=== PATIENT | female | born 1945 | race Caucasian/White ===

== ENCOUNTER 2017-12-29 16:03 | Emergency (ER) | payer MEDICARE, OTHER ==
[2017-12-29] MEDS ORDERED: RX INFO: IV CONTRAST WAS GIVEN 1 EACH MISC MISCELLANE PRN (16:23)
--- NOTE | 2017-12-29 16:28 | ED ---
General Adult HPI - General Chief complaint: Trauma Stated complaint: Rib injury Time Seen by Provider: 12/29/17 16:14 Source: patient, RN notes reviewed Mode of arrival: wheelchair Limitations: no limitations - History of Present Illness Initial comments: Patient is a 72-year-old female presenting to the emergency room today with a chief complaint of an injury to the right ribs. Patient does admit that she was soaking her move some truck. He states that he told her to step back because they were very heavy and he was just going to throw them up the side. States he didn't realize that she admits to tobacco trailer and went to throw the lawn. He states he was picking up the side and when he let go didn't realize that she was standing right there. On the right side of the ribs lifted her up and knocking her off the trailer. Patient does admit to pain locally to the right ribs. She states initially she had the wind knocked out of her. Denies any head injury or loss conscious. There is pain right side of her ribs worse with certain movements. She states pain currently a 4/10. Patient with the splint on her knees bilaterally. She states that they feel fine she's been ambulating with no difficulty. She denies any other complaints at this time. - Related Data Previous Rx's Medication Instructions Recorded Potassium Chloride [Klor-Con 10] 10 meq PO DAILY #5 tablet.er 12/29/17 Allergies Allergy/AdvReac Type Severity Reaction Status Date / Time No Known Allergies Allergy Verified 12/29/17 16:10 Review of Systems ROS Statement: Those systems with pertinent positive or pertinent negative responses have been documented in the HPI. ROS Other: All systems not noted in ROS Statement are negative. Past Medical History Past Medical History: Hyperlipidemia, Hypertension History of Any Multi-Drug Resistant Organisms: None Reported Past Surgical History: Appendectomy Additional Past Surgical History / Comment(s): cyst removed from ovary Past Psychological History: No Psychological Hx Reported Smoking Status: Former smoker Past Alcohol Use History: Occasional Past Drug Use History: None Reported General Exam - General Exam Comments Initial Comments: General: The patient is awake and alert, in no distress, and does not appear acutely ill. Eye: Pupils are equal, round and reactive to light, extra-ocular movements are intact. No nystagmus. There is normal conjunctiva bilaterally. No signs of icterus. Ears, nose, mouth and throat: There are moist mucous membranes and no oral lesions. Neck: The neck is supple, there is no tenderness or JVD. Cardiovascular: There is a regular rate and rhythm. No murmur, rub or gallop is appreciated. Respiratory: Lungs are clear to auscultation, respirations are non-labored, breath sounds are equal. No wheezes, stridor, rales, or rhonchi. Gastrointestinal: Patient does have small red aleks to the right upper quadrant. Locally tender throughout the distal right lower ribs some mild tenderness right side of the abdomen. There is no ecchymosis. No CVA tenderness. No rebound tenderness or guarding. Musculoskeletal: Normal ROM, no tenderness. Strength 5/5. Sensation intact. Pulses equal bilaterally 2+. Neurological: A&O x 3. CN II-XII intact, There are no obvious motor or sensory deficits. Coordination appears grossly intact. Speech is normal. Skin: Skin is warm and dry and no rashes or lesions are noted. Psychiatric: Cooperative, appropriate mood & affect, normal judgment. Limitations: no limitations Course Vital Signs 12/29/17 12/29/17 16:04 16:39 Temperature 97.5 F L Pulse Rate 60 Pulse Rate [ 82 [employer] ] Respiratory 18 18 Rate Blood Pressure 161/68 Blood Pressure 138/64 [Supine] O2 Sat by Pulse 97 Oximetry Medical Decision Making - Medical Decision Making Patient reexamined at this time shows no signs of distress. She is resting comfortably in the room. Patient's blood work has been reviewed and shows a potassium 2.9. She was given 40 mEq here in emergency room by mouth. Patient denies any known history of hypokalemia. Patient CT of the chest abdomen pelvis has been reviewed and shows no acute post reticulocyte finding. No acute osseous fracture, abdominal fluid collection, or evidence of solid organ injury in the thorax, abdomen or pelvis. A repeat CT follow-up for a 6 mm left upper lobe nodule was discussed with patient and recommended. She is advised follow-up the family doctor for repeat potassium this week. Will be given a prescription for the next 5 days to continue potassium at home. Advised to return if any symptoms increase worsen or for any other concerns. Discussed with attending physician Dr. Avalos. - Lab Data Result diagrams: 12/29/17 16:36 12/29/17 16:36 Lab Results 12/29/1718 12/29/17 Range/Units 16:36 16:36 16:36 WBC 6.1 (3.8-10.6) k/uL RBC 4.51 (3.80-5.40) m/uL Hgb 13.9 (11.4-16.0) gm/dL Hct 40.1 (34.0-46.0) % MCV 88.8 (80.0-100.0) fL MCH 30.8 (25.0-35.0) pg MCHC 34.6 (31.0-37.0) g/dL RDW 12.5 (11.5-15.5) % Plt Count 233 (150-450) k/uL Neutrophils % 45 % Lymphocytes % 40 % Monocytes % 8 % Eosinophils % 3 % Basophils % 1 % Neutrophils # 2.8 (1.3-7.7) k/uL Lymphocytes # 2.5 (1.0-4.8) k/uL Monocytes # 0.5 (0-1.0) k/uL Eosinophils # 0.2 (0-0.7) k/uL Basophils # 0.0 (0-0.2) k/uL PT 9.9 (9.0-12.0) sec INR 1.0 (<1.2) APTT 24.0 (22.0-30.0) sec Sodium 146 H (137-145) mmol/L Potassium 2.9 L* (3.5-5.1) mmol/L Chloride 101 (98-107) mmol/L Carbon Dioxide 27 (22-30) mmol/L Anion Gap 18 mmol/L BUN 17 (7-17) mg/dL Creatinine 0.70 (0.52-1.04) mg/dL Est GFR (CKD-EPI)AfAm >90 (>60 ml/min/1.73 sqM) Est GFR (CKD-EPI)NonAf 88 (>60 ml/min/1.73 sqM) Glucose 97 (74-99) mg/dL Calcium 10.2 (8.4-10.2) mg/dL Total Bilirubin 0.8 (0.2-1.3) mg/dL AST 38 H (14-36) U/L ALT 32 (9-52) U/L Alkaline Phosphatase 84 (38-126) U/L Total Protein 7.1 (6.3-8.2) g/dL Albumin 4.5 (3.5-5.0) g/dL Urine Color Urine Appearance (Clear) Urine pH (5.0-8.0) Ur Specific [place] (1.001-1.035) Urine Protein (Negative) Urine Glucose (UA) (Negative) Urine Ketones (Negative) Urine Blood (Negative) Urine Nitrite (Negative) Urine Bilirubin (Negative) Urine Urobilinogen (<2.0) mg/dL Ur Leukocyte Esterase (Negative) Urine WBC (0-5) /hpf Ur Squamous Epith Cells (0-4) /hpf Urine Mucus (None) /hpf 12/29/17 Range/Units 16:36 WBC (3.8-10.6) k/uL RBC (3.80-5.40) m/uL Hgb (11.4-16.0) gm/dL Hct (34.0-46.0) % MCV (80.0-100.0) fL MCH (25.0-35.0) pg MCHC (31.0-37.0) g/dL RDW (11.5-15.5) % Plt Count (150-450) k/uL Neutrophils % % Lymphocytes % % Monocytes % % Eosinophils % % Basophils % % Neutrophils # (1.3-7.7) k/uL Lymphocytes # (1.0-4.8) k/uL Monocytes # (0-1.0) k/uL Eosinophils # (0-0.7) k/uL Basophils # (0-0.2) k/uL PT (9.0-12.0) sec INR (<1.2) APTT (22.0-30.0) sec Sodium (137-145) mmol/L Potassium (3.5-5.1) mmol/L Chloride (98-107) mmol/L Carbon Dioxide (22-30) mmol/L Anion Gap mmol/L BUN (7-17) mg/dL Creatinine (0.52-1.04) mg/dL Est GFR (CKD-EPI)AfAm (>60 ml/min/1.73 sqM) Est GFR (CKD-EPI)NonAf (>60 ml/min/1.73 sqM) Glucose (74-99) mg/dL Calcium (8.4-10.2) mg/dL Total Bilirubin (0.2-1.3) mg/dL AST (14-36) U/L ALT (9-52) U/L Alkaline Phosphatase (38-126) U/L Total Protein (6.3-8.2) g/dL Albumin (3.5-5.0) g/dL Urine Color Yellow Urine Appearance Cloudy H (Clear) Urine pH 5.5 (5.0-8.0) Ur Specific [place] 1.020 (1.001-1.035) Urine Protein Negative (Negative) Urine Glucose (UA) Negative (Negative) Urine Ketones Negative (Negative) Urine Blood Negative (Negative) Urine Nitrite Negative (Negative) Urine Bilirubin Negative (Negative) Urine Urobilinogen <2.0 (<2.0) mg/dL Ur Leukocyte Esterase Trace H (Negative) Urine WBC 4 (0-5) /hpf Ur Squamous Epith Cells 7 H (0-4) /hpf Urine Mucus Rare H (None) /hpf Disposition Clinical Impression: Contusion of rib on right side, Hypokalemia, Pulmonary nodule Disposition: HOME SELF-CARE Condition: Good Instructions: Rib Contusion (ED) Additional Instructions: Please use medication as prescribed. Please follow-up the family doctor for repeat potassium check this week. Please discuss about pulmonary nodule and repeat imaging as discussed. Please return to emergency room if any symptoms increase worsen or for any other concerns. Prescriptions: Potassium Chloride [Klor-Con 10] 10 meq PO DAILY #5 tablet.er Is patient prescribed a controlled substance at d/c from ED?: No Referrals: Ruben Celis DO [Primary Care Provider] - 1-2 days Time of Disposition: 18:40
[2017-12-29 17:01] LABS: Appearance,Urine Cloudy (Clear); Basophils % (A) 1 %; Bilirubin,Urine Negative (Negative); Blood,Urine Negative (Negative); Color,Urine Yellow; Eosinophils # (A) 0.2 k/uL (0-0.7); Eosinophils % (A) 3 %; Glucose,Urine (UA) Negative (Negative); HCT 40.1 % (34.0-46.0); HGB 13.9 gm/dL (11.4-16.0); Ketones,Urine Negative (Negative); Leukocyte Esterase,Urine Trace (Negative); Lymphocytes # (A) 2.5 k/uL (1.0-4.8); Lymphocytes % (A) 40 %; MCH 30.8 pg (25.0-35.0); MCHC 34.6 g/dL (31.0-37.0); MCV 88.8 fL (80.0-100.0); Mean Platelet Volume 7.1; Monocytes # (A) 0.5 k/uL (0-1.0); Monocytes % (A) 8 %; Mucus,Urine Rare /hpf; Neutrophils # (A) 2.8 k/uL (1.3-7.7); Neutrophils % (A) 45 %; Nitrite,Urine Negative (Negative); PH, Urine 5.5 (5.0-8.0); Platelet Count 233 k/uL (150-450); Protein,Urine Negative (Negative); RBC 4.51 m/uL (3.80-5.40); RDW 12.5 % (11.5-15.5); Squamous Epithelial Cell,Urine 7 /hpf (0-4); Urobilinogen,Urine <2.0 mg/dL (<2.0); WBC 6.1 k/uL (3.8-10.6); WBC,Urine 4 /hpf (0-5)
[2017-12-29 17:03] LABS: ALT 32 U/L (9-52); AST 38 U/L (14-36); Albumin 4.5 g/dL (3.5-5.0); Alkaline Phosphatase 84 U/L (38-126); Anion Gap 18 mmol/L; Blood Urea Nitrogen 17 mg/dL (7-17); Calcium 10.2 mg/dL (8.4-10.2); Carbon Dioxide 27 mmol/L (22-30); Chloride 101 mmol/L (98-107); Glucose 97 mg/dL (74-99); Sodium 146 mmol/L (137-145); Total Bilirubin 0.8 mg/dL (0.2-1.3); Total Protein 7.1 g/dL (6.3-8.2)
[2017-12-29 17:05] LABS: Prothrombin Time 9.9 sec (9.0-12.0)
[2017-12-29 17:07] LABS: Potassium 2.9 mmol/L (3.5-5.1)
[2017-12-29] MEDS ORDERED: POTASSIUM CHLORIDE ER 20 MEQ TAB.ER PO STA (17:09)
--- NOTE | 2017-12-29 18:04 | CT ---
EXAMINATION TYPE: CT ChestAbdPelvis w con DATE OF EXAM: 12/29/2017 COMPARISON: NONE HISTORY: RUQ pain after injury CT DLP: 418.2 mGycm. Automated Exposure Control for Dose Reduction was Utilized. CONTRAST: CT scan of the thorax, abdomen and pelvis is performed with IV Contrast, patient injected with 100 mL of Isovue 300. FINDINGS: LUNGS: There is background chronic emphysematous change felt fairly moderate in appearance. There is mild biapical pleural/parenchymal scarring. There is 6 mm subpleural nodule left upper lobe axial noel ge 16. No pleural effusion or pneumothorax is present bilaterally. No suspicious consolidation is see n. MEDIASTINUM: There are no greater than 1 cm hilar or mediastinal lymph nodes. No cardiomegaly or p ericardial effusion is seen. Coronary artery calcification is present which is noted marker for onel nary artery disease. There is 4 mm anterior hyperdense right thyroid nodule axial image 1. OTHER: No additional significant abnormality is seen. LIVER/GB: Liver is upper limits of normal in size. PANCREAS: No significant abnormality is seen. SPLEEN: No significant abnormality is seen. ADRENALS: There is nonspecific 8 mm nodular thickening left adrenal gland axial image 58. KIDNEYS: Symmetric cortical medullary uptake and excretion is seen without hydronephrosis identified bilaterally. BOWEL: No suspicious dilatation. GENITAL ORGANS:. Uterus is surgically absent or markedly atrophic in appearance. LYMPH NODES: No greater than 1cm abdominal or pelvic lymph nodes are appreciated. OSSEOUS STRUCTURES: There is moderate disc space narrowing and spurring L4-L5 level. There is facet a rthropathy lower lumbar levels. Osseous structures are demineralized. OTHER: There is moderate to severe plaque in abdominal aorta extending into pelvic branch vessels. IMPRESSION: No acute posttraumatic finding seen in particular there is no acute osseous fracture, abn ormal fluid collection, or evidence of solid organ injury in the thorax, abdomen, or pelvis. Advise CT follow up for monitoring for 6 mm left upper lobe nodule as per Fleischner Society recommendations .
[2017-12-29 19:01] VITALS: BP 145/72; PULSE 53; RESP 16; TEMP 98
== END 2017-12-29 19:00 | disposition home or self-care (01) ==
LOC: EC 16:03
DX: S20.211A Contusion of right front wall of thorax, initial encounter (principal); E87.6 Hypokalemia; R91.1 Solitary pulmonary nodule; R10.819 Abdominal tenderness, unspecified site; Z87.891 Personal history of nicotine dependence; Z90.49 Acquired absence of other specified parts of digestive tract; W17.89XA Other fall from one level to another, initial encounter
CPT/HCPCS: 36415; 80053; 85025; 85610; 85730; 81001; 71260; 74177; 99284; Q9967

== ENCOUNTER 2018-03-05 10:23 | Day surgery (SDC) | payer MEDICARE, OTHER ==
[2018-02-28 11:39] VITALS: BMI 20.5
[~2018-03-05 10:23] MED LIST: LACTATED RINGERS 1,000 ML IV SCH
[2018-03-05] MEDS ORDERED: LIDOCAINE 1% 20 ML VIAL (10MG/ML) FOR IV START INTRADERMA ONE (11:18)
[2018-03-05 11:19] VITALS: RESP 16; TEMP 98.4
[2018-03-05] MEDS ORDERED: PROPOFOL 10 MG/ML 20 ML VIAL IV ONE (12:03)
[2018-03-05] MEDS ORDERED: LIDOCAINE 1% INJ 10MG/ML (20 ML MDV) ONE (12:03)
--- NOTE | 2018-03-05 12:38 | P.PCN ---
Date of Procedure: 03/05/18 Procedure(s) Performed: Procedure: Colonoscopy and polypectomy. Preoperative diagnosis: Screening for neoplasia. Postoperative diagnosis: Hepatic flexure polyp snared but no large polyps or cancer. Preparation: HalfLytely prep. Sedation: Was provided by anesthesia. Brief clinical history: The patient is a 72-year-old female who is scheduled for this evaluation for screening for neoplasia. The patient has no abdominal complaints, overt bleeding or anemia. She did have positive blood in her stools on a prior exam. No upper GI complaints or family history of colon cancer. This would be her first colonoscopy. Procedure: With the patient on her left lateral decubitus position and after informed consent and adequate sedation, the perianal area was inspected and it did not show any fissures or fistulas. There were no masses felt on digital rectal examination. The Olympus CFQ 160L video colonoscope was then inserted in the rectum in the usual fashion and advanced to the cecum. There was a 1- 1.5 cm polyp around the hepatic flexure which was snared and retrieved by suction but there were no large polyps or cancer. The mucosa appeared healthy. There was no obvious diverticular disease or other pathology. I retroflexed the endoscope in the rectum before the endoscope was withdrawn. Low-grade internal hemorrhoids were noted but there was no bleeding. The patient tolerated the procedure well. Plan: The patient was reassured. Discussed dietary measures and local care for hemorrhoids. In the absence of upper GI complaints or anemia, I did not recommend upper GI workup at this time for the workup of the blood in her stools and this can be kept as a contingency hercourse. She will follow-up with you as planned and I recommended repeat colonoscopy in 5 years.
[2018-03-05] MEDS ORDERED: ONDANSETRON 4 MG/2 ML VIAL IVP ONE (12:43)
[2018-03-05 12:52] VITALS: BP 119/59; PULSE 60
== END 2018-03-05 13:26 | disposition home or self-care (01) ==
LOC: ORWHC2ENDO 10:23
DX: D12.3 Benign neoplasm of transverse colon (principal); K64.8 Other hemorrhoids; R19.5 Other fecal abnormalities; I10 Essential (primary) hypertension; E78.5 Hyperlipidemia, unspecified; Z87.891 Personal history of nicotine dependence; Z79.899 Other long term (current) drug therapy
CPT/HCPCS: 88305; 45385; J2405; J2001; J2704

== ENCOUNTER → 2018-03-26 | Outpatient (CLI) | payer MEDICARE, OTHER ==
--- NOTE | 2018-03-27 08:00 | XR ---
EXAMINATION TYPE: XR foot complete RT DATE OF EXAM: 03/26/2018 CLINICAL HISTORY: pain TECHNIQUE: Frontal, lateral and oblique images of the right foot are obtained. COMPARISON: None. FINDINGS: There is no acute fracture/dislocation evident. The joint spaces appear within normal murrell its. The overlying soft tissue appears unremarkable. IMPRESSION: There is no acute fracture or dislocation. ICD 10 NO FRACTURE, INITIAL EVALUATION
== END | disposition home or self-care (01) ==
LOC: RADXRYALE 12:00
PROVIDERS: ATTEND Family Medicine
DX: M79.671 Pain in right foot (principal)

== ENCOUNTER → 2018-06-06 | Outpatient (CLI) | payer MEDICARE, OTHER ==
[2018-06-06 17:42] LABS: Blood Urea Nitrogen 27 mg/dL (7-17)
--- NOTE | 2018-06-07 07:40 | CT ---
EXAMINATION TYPE: CT chest w con DATE OF EXAM: 06/06/2018 COMPARISON: 12/29/2017 HISTORY: Solitary pulmonary nodule. CT DLP: 109.5 mGycm Automated exposure control for dose reduction was used. CONTRAST: CT scan of the chest is performed with IV Contrast, patient injected with 100 mL of Isovue M300. FINDINGS: LUNGS: Others stable 6 mm subpleural nodule left upper lobe laterally. No new nodules are identified. No evidence for mass or infiltrate. No pleural effusion. Moderate emphysematous changes are again no lucas. MEDIASTINUM: There are no greater than 1 cm hilar or mediastinal lymph nodes. No pericardial effusi on is seen. Thoracic aorta is of normal caliber. The heart is not enlarged. UPPER ABDOMEN: No significant abnormality appreciated. OTHER: 9.8 mm cyst within the spleen. IMPRESSION: 1. Stable subpleural pulmonary nodule. 2. Emphysematous changes.
== END | disposition home or self-care (01) ==
LOC: RADCTMAIN 17:06
PROVIDERS: ATTEND Family Medicine
DX: R91.1 Solitary pulmonary nodule (principal); J43.9 Emphysema, unspecified; Z01.812 Encounter for preprocedural laboratory examination
CPT/HCPCS: 82565; 84520; 71260; 36415; Q9967

== ENCOUNTER → 2018-12-11 | Outpatient (CLI) | payer MEDICARE, OTHER ==
--- NOTE | 2018-12-11 15:21 | US ---
EXAMINATION TYPE: US thyroid st tissue head/neck DATE OF EXAM: 12/11/2018 COMPARISON: NONE CLINICAL HISTORY: R94.6 Abnormal Thyroid Function. GLAND SIZE: Right Lobe: 4.2 x 1.4 x 1.6 cm Overall Parenchyma: heterogenous Left Lobe: 3.8 x 1.3 x 1.4 cm Overall Parenchyma: heterogeneous Isthmus Thickness: 0.2 cm NODULES RIGHT: # of nodules measured on right: 1 1. 0.3 X 0.2 x 0.2 cm cystic nodule at the lateral mid pole with well-defined margins. This nodule is tall as wide and shows no intranodular vascularity. Prior size: No previous LEFT: # of nodules measured on left: 2 1. 0.9 X 0.8 x 0.7 cm mixed nodule at the pole with well-defined margins. This nodule is wider jono n tall and shows no intranodular vascularity. Prior size: No previous 2. 0.6 X 0.6 x 0.4 cm isoechoic nodule at the upper pole with well-defined margins. This nodule is wider than tall and shows no intranodular vascularity. Prior size: No previous ISTHMUS: # of nodules measured in the isthmus: 0 Bilateral neck scanned, no evidence of lymphadenopathy. IMPRESSION: Multinodular subcentimeter thyroid nodules with findings suggestive of thyroiditis.
== END | disposition home or self-care (01) ==
LOC: RADUSWWP 14:22
PROVIDERS: ATTEND Family Medicine
DX: E04.2 Nontoxic multinodular goiter (principal)
CPT/HCPCS: 76536

== ENCOUNTER → 2019-01-08 | Outpatient (CLI) | payer MEDICARE, OTHER ==
[2019-01-08 18:03] LABS: T4, Free (Free Thyroxine) 1.2 ng/dL (0.80-1.80)
== END | disposition home or self-care (01) ==
LOC: LABWHC1 10:13
PROVIDERS: ATTEND Internal Medicine Endocrinology, Diabetes & Metabolism
DX: E05.90 Thyrotoxicosis, unspecified without thyrotoxic crisis or storm (principal)
CPT/HCPCS: 36415; 84439; 84443; 84445; 84480

== ENCOUNTER → 2019-02-05 | Outpatient (CLI) | payer MEDICARE, OTHER ==
--- NOTE | 2019-02-06 13:44 | NM ---
EXAMINATION TYPE: NM thyroid image w uptake DATE OF EXAM: 02/06/2019 COMPARISON: NONE HISTORY: Nontoxic multinodular goiter TECHNIQUE: Thyroid iodine uptake is calculated and images performed after the oral administration of 313 uCi 1-123 Capsule. FINDINGS: There is normal distribution of activity throughout the gland. No focal hot nodules or phot openic defects are evident. There is increased uptake in relation to the salivary glands. Uptake at 4 hours is 5.4% which is low. Uptake at 24 hours is 16.8% which is within the minimal alberta l range. IMPRESSION: 1. There appears be some increase uptake within the thyroid scan images. 2. Thyroid Uptake however appears to be low.
== END | disposition home or self-care (01) ==
LOC: RADNMMAIN 08:39
PROVIDERS: ATTEND Internal Medicine Endocrinology, Diabetes & Metabolism
DX: E04.2 Nontoxic multinodular goiter (principal)
CPT/HCPCS: 78014; A9516

== ENCOUNTER → 2019-06-23 | Outpatient (CLI) | payer MEDICARE, OTHER ==
--- NOTE | 2019-06-23 10:32 | BD ---
EXAMINATION TYPE: Axial Bone Density DATE OF EXAM: 06/23/2019 COMPARISON: NONE CLINICAL HISTORY: disorder of bone Height: 5'2 Weight: 102 FRAX RISK QUESTIONS: Secondary Osteoporosis: RISK FACTORS HISTORY OF: Postmenopausal woman: y MEDICATIONS: Additional Medications: high blood pressure, cholesterol Additional History: EXAM MEASUREMENTS: Bone mineral densitometry was performed using the [employer] System. Bone mineral density as measured about the Lumbar spine is: ----- L1-L4(G/cm2): 0.952 T Score Values are as follows: ----- L2: -2.7 ----- L3: -2.3 ----- L4: 0.2 ----- L1-L4:-1.9 Bone mineral density about the R hip (g/cm2): 0.620 Bone mineral density about the L hip (g/cm2): 0.643 T Score values are as follows: -----R Neck: -3.0 -----L Neck: -2.8 -----R Total: -2.7 -----L Total: -2.4 IMPRESSION: Osteoporosis (T Score less than -2.5). There is increased fracture risk and therapy is usually indicated based on age. Re-Screen 1-2 years. NOTE: T-SCORE=SD OF THE YOUNG ADULT MEAN.
== END ==
LOC: RADBDWWP 09:08
PROVIDERS: ATTEND Family Medicine
DX: M81.0 Age-related osteoporosis without current pathological fracture (principal)
CPT/HCPCS: 77080

== ENCOUNTER → 2020-04-26 | Outpatient (CLI) | payer MEDICARE, OTHER ==
--- NOTE | 2020-04-26 13:21 | XR ---
EXAMINATION TYPE: XR cervical spine comp DATE OF EXAM: 04/26/2020 COMPARISON: None HISTORY: 74-year-old female M542, cervicalgia, posterior neck pain TECHNIQUE: 5 views FINDINGS: Normal odontoid view. No predental space linear prevertebral soft tissue swelling. Facet arthropathy and uncovertebral joint arthropathy especially mid cervical spine. There is preserved alignment of th e cervical spine. No significant bony neuroforaminal narrowing on either side. IMPRESSION: Moderate facet and uncovertebral joint arthropathy mid cervical spine. No prevertebral soft tissue sw elling or malalignment.
== END | disposition home or self-care (01) ==
LOC: RADXRYALE 11:15
PROVIDERS: ATTEND Family Medicine
DX: M47.812 Spondylosis without myelopathy or radiculopathy, cervical region (principal)
CPT/HCPCS: 72050

== ENCOUNTER 2021-12-01 22:06 | Observation (INO) | payer MEDICARE, OTHER ==
--- NOTE | 2021-12-01 23:40 | XR ---
EXAMINATION TYPE: XR chest 2V DATE OF EXAM: 12/01/2021 COMPARISON: NONE HISTORY: Short of breath TECHNIQUE: 2 view FINDINGS: There is pulmonary hyperinflation with flattening of the diaphragm. Heart size is normal. T here are no hilar masses. Costophrenic angles are clear. Thoracic spine is intact. IMPRESSION: COPD. No active cardiopulmonary disease.
[2021-12-02 02:15] LABS: Basophils # (A) 0.1 k/uL (0-0.2); Basophils % (A) 1 %; Eosinophils # (A) 0.3 k/uL (0-0.7); Eosinophils % (A) 4 %; HCT 47.2 % (34.0-46.0); HGB 15.5 gm/dL (11.4-16.0); Lymphocytes # (A) 2.5 k/uL (1.0-4.8); Lymphocytes % (A) 33 %; MCH 30.4 pg (25.0-35.0); MCHC 32.8 g/dL (31.0-37.0); MCV 92.7 fL (80.0-100.0); Mean Platelet Volume 7.6; Monocytes # (A) 0.5 k/uL (0-1.0); Monocytes % (A) 7 %; Neutrophils # (A) 3.8 k/uL (1.3-7.7); Neutrophils % (A) 51 %; Platelet Count 259 k/uL (150-450); RBC 5.09 m/uL (3.80-5.40); RDW 12.5 % (11.5-15.5); WBC 7.4 k/uL (3.8-10.6)
[2021-12-02 02:25] LABS: ALT 17 U/L (4-34); AST 23 U/L (14-36); African American GFR (CKD) >90 (>60 ml/min/1.73 sqM); Albumin 4.7 g/dL (3.5-5.0); Alkaline Phosphatase 81 U/L (38-126); Anion Gap 10 mmol/L; Blood Urea Nitrogen 20 mg/dL (7-17); Calcium 10.1 mg/dL (8.4-10.2); Carbon Dioxide 30 mmol/L (22-30); Chloride 98 mmol/L (98-107); Glucose 112 mg/dL (74-99); Non-African American GFR(CKD) 86 (>60 ml/min/1.73 sqM); Potassium 3.5 mmol/L (3.5-5.1); Sodium 138 mmol/L (137-145); Total Protein 7.9 g/dL (6.3-8.2)
[2021-12-02 02:26] LABS: INR 0.9 (<1.2); Partial Thromboplastin Time 25.4 sec (22.0-30.0)
--- NOTE | 2021-12-02 03:48 | ED ---
SOB HPI - General Chief Complaint: Shortness of Breath Stated Complaint: PREETI Time Seen by Provider: 12/02/21 01:20 Source: patient, RN notes reviewed Mode of arrival: wheelchair Limitations: no limitations - History of Present Illness Initial Comments: This is a pleasant 76-year-old female who has had 3 episodes of racing heart beat with a sensation of shortness of breath over the past few days. She states this lasts several minutes up to an hour and then goes away completely. Since around Jihad the current time. She has had no chest pain. Denies any fever or chills. No cough. No headache, no fever or chills, no changes in vision or hearing, no sore throat or difficulty with speech, no neck pain, no chest pain or shortness of breath, no abdominal pain, no nausea or vomiting, no changes in urination or bowel movements, no numbness or tingling, no extremity pain, no skin rashes or lesions. Patient is a previous cigarette smoker quitting in 2017. No history of pulmonary embolism or DVT. No history of COVID-19. Patient immunized against COVID-19. Patient does note that she has been under a great deal of stress due to her being diagnosed with cancer. - Related Data Home Medications Medication Instructions Recorded Confirmed Ascorbic Acid [Vitamin C] 1,000 mg PO DAILY 02/28/18 03/05/18 Atenolol/Chlorthalidone [Tenoretic 1 tab PO DAILY 02/28/18 03/05/18 50 Tablet] Cholecalciferol (Vitamin D3) 2,000 unit PO DAILY 02/28/18 03/05/18 [Vitamin D3] Fish Oil/Dha/Epa [Fish Oil 1,200 1 each PO DAILY 02/28/18 03/05/18 mg Fish Oil] Multivitamin [Multivitamins Adult 2 each PO DAILY 02/28/18 03/05/18 Gummies] Pravastatin Sodium [Pravachol] 20 mg PO DAILY 02/28/18 03/05/18 Allergies Allergy/AdvReac Type Severity Reaction Status Date / Time No Known Allergies Allergy Verified 12/01/21 22:24 Review of Systems ROS Statement: Those systems with pertinent positive or pertinent negative responses have been documented in the HPI. ROS Other: All systems not noted in ROS Statement are negative. Past Medical History Past Medical History: Hyperlipidemia, Hypertension Additional Past Medical History / Comment(s): POS BLOOD IN STOOL SAMPLE. History of Any Multi-Drug Resistant Organisms: None Reported Past Surgical History: Appendectomy, Section, Hysterectomy Additional Past Surgical History / Comment(s): C-S X2. Cyst removed from Ovary. MEGHNA CTR X2 Past Anesthesia/Blood Transfusion Reactions: No Reported Reaction Past Psychological History: No Psychological Hx Reported Smoking Status: Never smoker Past Alcohol Use History: Occasional Past Drug Use History: None Reported - Past Family History Mother Family Medical History: No Reported History General Exam - General Exam Comments Initial Comments: Healthy-appearing 76-year-old female in no distress at the time I'm seeing her. Vital signs are reviewed. Does not appear to be ill or toxic. Limitations: no limitations General appearance: alert, in no apparent distress Head exam: Present: atraumatic, normocephalic, normal inspection Eye exam: Present: normal appearance, PERRL, EOMI. Absent: scleral icterus, conjunctival injection, periorbital swelling ENT exam: Present: normal exam, mucous membranes moist Neck exam: Present: normal inspection. Absent: tenderness, meningismus, lymphadenopathy Respiratory exam: Present: normal lung sounds bilaterally. Absent: respiratory distress, wheezes, rales, rhonchi, stridor Cardiovascular Exam: Present: regular rate, normal rhythm, normal heart sounds. Absent: systolic murmur, diastolic murmur, rubs, gallop, clicks GI/Abdominal exam: Present: soft, normal bowel sounds. Absent: distended, tend erness, guarding, rebound, rigid Extremities exam: Present: normal inspection, full ROM, normal capillary refill. Absent: tenderness, pedal edema, joint swelling, calf tenderness Back exam: Present: normal inspection Neurological exam: Present: alert, oriented X3, CN II-XII intact Psychiatric exam: Present: normal affect, normal mood Skin exam: Present: warm, dry, intact, normal color. Absent: rash Course Vital Signs 12/01/21 22:25 Temperature 98.3 F Pulse Rate 64 Respiratory 20 Rate Blood Pressure 153/73 O2 Sat by Pulse 95 Oximetry - Reevaluation(s) Reevaluation #1: 12/02/21 03:50 Medical record is reviewed Patient remained asymptomatic here in the emergency department Patient is informed of results and questions answered Patient in no distress Medical Decision Making - Medical Decision Making Palpitations Patient presents with recurrent episodes of palpitations. Patient was asymptomatic here in the ER. This does raise suspicion of possible intermittent cardiac arrhythmia. Patient's laboratory investigations and diagnostic testing here are essentially normal. We did order a 36 hour Holter monitor. Have the patient touch base with her regular physician to see if she should go back up on atenolol dosing as this was recently cut in half. Patient also had a systolic blood pressure 150s here. Patient given follow-up information for cardiology as well. She is to call the morning for an appointment. She will plan discussed in detail. All questions answered. Patient voiced understanding. Patient was told to return to the ER for any signs or symptoms worsen. Told to return immediately if any other problems arise. All questions answered. Treatment plan discussed. Patient in agreement Every effort has been made to ensure accuracy of this dictation. However, due to the limitations of electronic medical records and dictation devices, errors in charting still occur. - Lab Data Result diagrams: 12/02/21 02:00 12/02/21 02:00 Lab Results 12/02/21 12/02/21 12/02/21 Range/Units 02:00 02:00 02:00 WBC 7.4 (3.8-10.6) k/uL RBC 5.09 (3.80-5.40) m/uL Hgb 15.5 (11.4-16.0) gm/dL Hct 47.2 H (34.0-46.0) % MCV 92.7 (80.0-100.0) fL MCH 30.4 (25.0-35.0) pg MCHC 32.8 (31.0-37.0) g/dL RDW 12.5 (11.5-15.5) % Plt Count 259 (150-450) k/uL MPV 7.6 Neutrophils % 51 % Lymphocytes % 33 % Monocytes % 7 % Eosinophils % 4 % Basophils % 1 % Neutrophils # 3.8 (1.3-7.7) k/uL Lymphocytes # 2.5 (1.0-4.8) k/uL Monocytes # 0.5 (0-1.0) k/uL Eosinophils # 0.3 (0-0.7) k/uL Basophils # 0.1 (0-0.2) k/uL PT 10.0 (9.0-12.0) sec INR 0.9 (<1.2) APTT 25.4 (22.0-30.0) sec Sodium 138 (137-145) mmol/L Potassium 3.5 (3.5-5.1) mmol/L Chloride 98 (98-107) mmol/L Carbon Dioxide 30 (22-30) mmol/L Anion Gap 10 mmol/L BUN 20 H (7-17) mg/dL Creatinine 0.70 (0.52-1.04) mg/dL Est GFR (CKD-EPI)AfAm >90 (>60 ml/min/1.73 sqM) Est GFR (CKD-EPI)NonAf 86 (>60 ml/min/1.73 sqM) Glucose 112 H (74-99) mg/dL Calcium 10.1 (8.4-10.2) mg/dL Magnesium 2.0 (1.6-2.3) mg/dL Total Bilirubin 1.0 (0.2-1.3) mg/dL AST 23 (14-36) U/L ALT 17 (4-34) U/L Alkaline Phosphatase 81 (38-126) U/L Troponin I (0.000-0.034) ng/mL NT-Pro-B Natriuret Pep pg/mL Total Protein 7.9 (6.3-8.2) g/dL Albumin 4.7 (3.5-5.0) g/dL TSH 1.310 (0.465-4.680) mIU/L Coronavirus (PCR) (Not Detectd) 12/02/21 12/02/21 12/02/21 Range/Units 02:00 02:00 02:00 WBC (3.8-10.6) k/uL RBC (3.80-5.40) m/uL Hgb (11.4-16.0) gm/dL Hct (34.0-46.0) % MCV (80.0-100.0) fL MCH (25.0-35.0) pg MCHC (31.0-37.0) g/dL RDW (11.5-15.5) % Plt Count (150-450) k/uL MPV Neutrophils % % Lymphocytes % % Monocytes % % Eosinophils % % Basophils % % Neutrophils # (1.3-7.7) k/uL Lymphocytes # (1.0-4.8) k/uL Monocytes # (0-1.0) k/uL Eosinophils # (0-0.7) k/uL Basophils # (0-0.2) k/uL PT (9.0-12.0) sec INR (<1.2) APTT (22.0-30.0) sec Sodium (137-145) mmol/L Potassium (3.5-5.1) mmol/L Chloride (98-107) mmol/L Carbon Dioxide (22-30) mmol/L Anion Gap mmol/L BUN (7-17) mg/dL Creatinine (0.52-1.04) mg/dL Est GFR (CKD-EPI)AfAm (>60 ml/min/1.73 sqM) Est GFR (CKD-EPI)NonAf (>60 ml/min/1.73 sqM) Glucose (74-99) mg/dL Calcium (8.4-10.2) mg/dL Magnesium (1.6-2.3) mg/dL Total Bilirubin (0.2-1.3) mg/dL AST (14-36) U/L ALT (4-34) U/L Alkaline Phosphatase (38-126) U/L Troponin I <0.012 (0.000-0.034) ng/mL NT-Pro-B Natriuret Pep 185 pg/mL Total Protein (6.3-8.2) g/dL Albumin (3.5-5.0) g/dL TSH (0.465-4.680) mIU/L Coronavirus (PCR) Not Detected (Not Detectd) - EKG Data EKG Comments: EKG shows normal sinus rhythm with a rate of 60, normal intervals. No acute ST or T-wave changes. Mild artifact. Normal axis. Minimal poor R-wave progression. No evidence of acute changes. Read by the ED attending physician. Study done at 1:12 AM. - Radiology Data Radiology results: image reviewed (Chest x-ray shows COPD with no active cardiopulmonary disease otherwise.) Disposition Clinical Impression: Palpitations, Hypertension, poor control Disposition: HOME SELF-CARE Condition: Good Instructions (If sedation given, give patient instructions): Heart Palpitations (ED), Hypertension (ED) Additional Instructions: Call tomorrow morning at 8 AM to make an appointment with the doper. Also call your regular physician to discuss dosage of your blood pressure medication, atenolol. You need to have a Holter monitor. Return here to this facility tomorrow to have a Holter monitor placed by the cardiology clinic. Call the main hospital number at 9 AM to schedule a time. Follow-up with your regular physician as directed. Return to the ER immediately if any symptoms worsen, new symptoms arise, or any other problems develop. If any symptoms recur return to the ER at once. Is patient prescribed a controlled substance at d/c from ED?: No Referrals: Ruben Celis DO [Primary Care Provider] - 12/02/21 8:00 am Manuel Coello MD [STAFF PHYSICIAN] - 12/02/21 8:00 am
[2021-12-02] MEDS ORDERED: ASPIRIN 81 MG PO STA (04:06)
[2021-12-02] MEDS ORDERED: ACETAMINOPHEN TAB 325 MG TAB PO PRN (04:17)
[2021-12-02] MEDS ORDERED: NALOXONE 0.4 MG/ML 1 ML VIAL IV PRN (04:17)
[2021-12-02] MEDS ORDERED: ONDANSETRON 4 MG/2 ML VIAL IVP PRN (04:17)
--- NOTE | 2021-12-02 05:07 | P.HPIM ---
History of Present Illness H&P Date: 12/02/21 Chief Complaint: chest tightness 76 year old female with hypertension she comes in today due to exertional dyspnea when climbing steps or doing something physical , she becomes short of breath quickly , sts associated with palpitations, no syncope, no cardiac history . this has only been going on for 1-2 weeks she admits to going through a lot of stress as her diagnosed with stage IV lung cancer. recently she started feeling better in the ED, and as she was leaving , she had another episode of palpitations and chest tightness. for which she admitted under observation for cardiac eval blood work unremarkable , EKG no acute ST changes Review of Systems Pertinent positives as noted in HPI. All other systems were reviewed and are negative Past Medical History Past Medical History: Hyperlipidemia, Hypertension Additional Past Medical History / Comment(s): POS BLOOD IN STOOL SAMPLE. History of Any Multi-Drug Resistant Organisms: None Reported Past Surgical History: Appendectomy, Section, Hysterectomy Additional Past Surgical History / Comment(s): C-S X2. Cyst removed from Ovary. MEGHNA CTR X2 Past Anesthesia/Blood Transfusion Reactions: No Reported Reaction Past Psychological History: No Psychological Hx Reported Smoking Status: Never smoker Past Alcohol Use History: Occasional Past Drug Use History: None Reported - Past Family History Mother Family Medical History: No Reported History Medications and Allergies Home Medications Medication Instructions Recorded Confirmed Type Ascorbic Acid [Vitamin C] 1,000 mg PO DAILY 02/28/18 03/05/18 History Atenolol/Chlorthalidone [Tenoretic 1 tab PO DAILY 02/28/18 03/05/18 History 50 Tablet] Cholecalciferol (Vitamin D3) 2,000 unit PO DAILY 02/28/18 03/05/18 History [Vitamin D3] Fish Oil/Dha/Epa [Fish Oil 1,200 1 each PO DAILY 02/28/18 03/05/18 History mg Fish Oil] Multivitamin [Multivitamins Adult 2 each PO DAILY 02/28/18 03/05/18 History Gummies] Pravastatin Sodium [Pravachol] 20 mg PO DAILY 02/28/18 03/05/18 History Allergies Allergy/AdvReac Type Severity Reaction Status Date / Time No Known Allergies Allergy Verified 12/01/21 22:24 Physical Exam Vitals: Vital Signs Temp Pulse Resp BP Pulse Ox 12/02/21 04:28 67 18 157/88 95 12/02/21 03:00 67 18 150/84 96 12/02/21 02:00 18 12/01/21 22:25 98.3 F 64 20 153/73 95 Intake and Output 12/01/21 12/01/21 12/02/21 14:59 22:59 06:59 Other: Weight 46.266 kg Constitutional: No acute distress, conversant, pleasant Eyes: Anicteric sclerae, moist conjunctiva, Pupils equal round reactive to light ENMT: NC/AT Oropharynx clear, no erythema, or exudates Neck: Supple, FROM, no masses, or JVD No carotid bruits No thyromegaly Lungs: Clear to auscultation Clear to percussion Normal respiratory effort, no accessory muscle use Cardiovascular: Heart regular in rate and rhythm, No murmurs, gallops, or rubs No peripheral edema Abdominal: Soft Nontender, no guarding, rebound or rigidity Abdomen moving with respiration Normoactive bowel sounds No hepatomegaly, No splenomegaly No palpable mass No abdominal wall hernia noted Skin: Normal temperature, tone, texture, turgor No induration No subcutaneous nodules No rash, lesions No ulcers Extremities: No digital cyanosis No clubbing Pedal pulses intact and symmetrical Radial pulses intact and symmetrical No calf tenderness Psychiatric: Alert and oriented to person, place and time Appropriate affect fair judgement Neuro Muscles Strength 5/5 in all 4 extremities Sensation to light touch grossly present throughout Cranial nerves II-XII grossly intact No focal sensory deficits Lymphatics: no palpable cervical or supraclavicular , or inguinal lymph nodes Results CBC & Chem 7: 12/02/21 02:00 12/02/21 02:00 Labs: Abnormal Lab Results - Last 24 Hours (Table) 12/02/21 12/02/21 Range/Units 02:00 02:00 Hct 47.2 H (34.0-46.0) % BUN 20 H (7-17) mg/dL Glucose 112 H (74-99) mg/dL Assessment and Plan Assessment: Exertional dyspnea 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
[2021-12-02] MEDS ORDERED: atenoloL 50 MG TAB PO SCH (09:00)
[2021-12-02] MEDS ORDERED: PRAVASTATIN SODIUM 20 MG TAB PO SCH (09:00)
[2021-12-02] MEDS ORDERED: CHLORTHALIDONE 25 MG TAB PO SCH (09:00)
[2021-12-02 09:27] LABS: Chol/HDL Ratio 3.17 Ratio
[2021-12-02 13:06] VITALS: RESP 18
--- NOTE | 2021-12-02 14:35 | CONS ---
CONSULTATION INDICATION: Palpitations and shortness of breath. CHIEF COMPLAINT: Palpitations and shortness of breath. Sahra is a 76-year-old lady with history of dyslipidemia and hypertension who presented to hospital with intermittent episodes of shortness of breath. She states that the episodes last for about half an hour and then resolve on their own. She is under a lot of stress, as her has been diagnosed with cancer. At the time of my evaluation she appears comfortable at rest and is hemodynamically stable. I have seen her in the emergency room. Her EKG looks normal. Troponins are negative. Coronavirus is normal. Her LDL cholesterol is 117. Her D-dimer is normal and the hemoglobin is normal. Shortness of breath may be related to possible underlying COPD. She used to be heavy smoker but quit many many years ago. On an echocardiogram I performed which I reviewed at bedside, she has normal wall motion, LV function and no evidence of valvular heart disease. PAST MEDICAL HISTORY: Significant for hypertension, dyslipidemia. CURRENT MEDICATIONS: Current medications include Tenoretic, pravastatin. ALLERGIES: NO KNOWN DRUG ALLERGIES. FAMILY HISTORY: Negative for premature coronary artery disease. SOCIAL HISTORY: Negative for current smoking, ETOH abuse or drug abuse. REVIEW OF SYSTEMS: HEENT is unremarkable. CARDIAC: As described above. RESPIRATORY: As described above. GI: Negative. GENITOURINARY: Negative. ALLERGY/IMMUNOLOGY: Negative. SKIN: Negative. MUSCULOSKELETAL: Negative. ENDOCRINE: Negative. DERMATOLOGY: Negative. CONSTITUTIONAL: Negative. ONCOLOGICAL: Negative. COMPENSATION BUSINESS PARTNER: Negative. Rest of the system review is not relevant. PHYSICAL EXAMINATION: Afebrile. Heart rate is 57 beats per minute. Blood pressure is 130/72, respiratory rate is 18, O2 saturation is 94% on room air. There is no jugular venous distention. Carotid upstroke is normal. There is no bruit. Chest exam reveals good air entry bilaterally. Heart exam reveals first and second heart sounds. No gallop. No murmur. Abdomen is soft, non-tender. Examination of extremities did not reveal any edema. Peripheral pulses are felt. LABS: Three sets of troponins are negative. Hemoglobin is normal. D-dimer is normal. ASSESSMENT: 1. Shortness of breath. Rule out cardiac causes. 2. Hypertension. 3. Dyslipidemia. PLAN: Patient is not in congestive heart failure, did not have pulmonary embolism, and has normal LV function and no evidence of valvular heart disease. The exact etiology for her shortness of breath is unclear. No further inpatient cardiac workup at this time. However, I will obtain an outpatient stress test on her. My office will call and give her an appointment on Sunday. Thank you for giving me the privilege of participating in the care of this pleasant lady. MMHORACIOL / IJN: [id number] /
[2021-12-02 15:30] VITALS: BP 137/80; TEMP 97.4
[2021-12-02 15:33] VITALS: PULSE 55
--- NOTE | 2021-12-02 17:08 | P.DS ---
Providers Date of admission: 12/02/21 09:12 Expected date of discharge: 12/02/21 Attending physician: Joanne Dickson MD Consults: 12/02/21 04:17 Consult Physician Urgent Consulting Provider: Manuel Coello Consult Reason/Comments: Shortness of breath, chest pressure, palpitations Do you want consulting provider notified?: Yes, Notify in am Primary care physician: Ruben [facility] Course: Exertional dyspnea Palpitations COPD without exacerbation 76 year old female with hypertension presented due to exertional dyspnea when climbing steps or doing something physical. She started feeling better in the ED, and as she was leaving , she had another episode of palpitations and chest tightness. for which she admitted under observation for cardiac eval. Blood work unremarkable , EKG no acute ST changes. CXR showed hyperinflation and flattening of diaphragms c/w COPD. Pt was seen in consultation with cardiology, who determined patient was not having episode of ACS given negative troponins, non-ischemic EKG, Echo with good EF and no WMA, and resolution of symptoms. Pt was discharged with albuterol inhaler prescription for dyspnea, and I recommended that she f/u with PCP to schedule outpatient PFTs. I called Dr. López's office regarding this last recommendation. Gen: awake, alert HEENT: normocephalic, atraumatic, good hearing acuity, moist mucous membranes Resp: Impaired air exchange, breathing comfortably with no accessory muscle use CVS: good distal perfusion x 4, GI: soft, NTTP, ND : no SPT, no CVAT, falcon catheter not present MSK: no pitting edema, no clubbing Neuro: non-focal, moving all extremities Psych: cooperative, euthymic mood Patient Condition at Discharge: Good Plan - Discharge Summary Discharge Rx Participant: No New Discharge Prescriptions: New Albuterol Inhaler [Ventolin Hfa Inhaler] 1 puff INHALATION RT-QID PRN #8 gm PRN Reason: Shortness Of Breath Continue Multivitamin [Multivitamins Adult Gummies] 2 tab PO DAILY Pravastatin Sodium [Pravachol] 20 mg PO DAILY Atenolol/Chlorthalidone [Tenoretic 50 Tablet] 0.5 tab PO DAILY Cholecalciferol (Vitamin D3) [Vitamin D3 (3000 Iu)] 75 mcg PO DAILY Ibandronate Sodium 150 mg PO QMONTHLY Ferrous Sulfate [Iron (65 MG Elemental)] 325 mg PO DAILY Calcium Carbonate [Calcium] 600 mg PO DAILY Discharge Medication List Atenolol/Chlorthalidone [Tenoretic 50 Tablet] 0.5 tab PO DAILY 02/28/18 [History] Multivitamin [Multivitamins Adult Gummies] 2 tab PO DAILY 02/28/18 [History] Pravastatin Sodium [Pravachol] 20 mg PO DAILY 02/28/18 [History] Albuterol Inhaler [Ventolin Hfa Inhaler] 1 puff INHALATION RT-QID PRN #8 gm 12/02/21 [Rx] Calcium Carbonate [Calcium] 600 mg PO DAILY 12/02/21 [History] Cholecalciferol (Vitamin D3) [Vitamin D3 (3000 Iu)] 75 mcg PO DAILY 12/02/21 [History] Ferrous Sulfate [Iron (65 MG Elemental)] 325 mg PO DAILY 12/02/21 [History] Ibandronate Sodium 150 mg PO QMONTHLY 12/02/21 [History] Follow up Appointment(s)/Referral(s): Manuel Coello MD [STAFF PHYSICIAN] - 12/02/21 8:00 am Ruben Celis DO [Primary Care Provider] - 12/02/21 8:00 am Patient Instructions/Handouts: Heart Palpitations (ED), COPD (Chronic Obstructive Pulmonary Disease) (GEN), Hypertension (ED) Activity/Diet/Wound Care/Special Instructions: You will require PULMONARY FUNCTION TEST including spirometry and lung volume measurement, as your shortness of breath is likely related to COPD. Please discuss with your primary care physician regarding scheduling this test. I included an information packet about COPD, and prescribed an inhaler to be used as needed. Call tomorrow morning at 8 AM to make an appointment with the power engineer. Also call your regular physician to discuss dosage of your blood pressure medica tion, atenolol. You need to have a Holter monitor. Return here to this facility tomorrow to have a Holter monitor placed by the cardiology clinic. Call the main hospital number at 9 AM to schedule a time. Follow-up with your regular physician as directed. Return to the ER immediately if any symptoms worsen, new symptoms arise, or any other problems develop. If any symptoms recur return to the ER at once. Discharge Disposition: HOME SELF-CARE
--- NOTE | 2021-12-13 08:58 | ECHOF ---
Referral Reason:echo MEASUREMENTS -------- HEIGHT: 152.4 cm WEIGHT: 46.3 kg BP: RVIDd: 2.7 cm (< 3.3) IVSd: 0.9 cm (0.6 - 1.1) LVIDd: 3.2 cm (3.9 - 5.3) LVPWd: 1.2 cm (0.6 - 1.1) IVSs: 1.2 cm LVIDs: 2.5 cm LVPWs: 0.9 cm LA Diam: 3.0 cm (2.7 - 3.8) Ao Diam: 2.9 cm (2.0 - 3.7) AV Cusp: 1.4 cm (1.5 - 2.6) LA Diam: 3.1 cm (2.7 - 3.8) MV EXCURSION: 25.206 mm (> 18.000) MV EF SLOPE: 59 mm/s (70 - 150) EPSS: 0.4 cm MV E Jeff: 0.80 m/s MV DecT: 161 ms MV A Jeff: 0.62 m/s MV E/A Ratio: 1.30 RAP: 5.00 mmHg RVSP: 23.24 mmHg FINDINGS -------- Sinus rhythm. This was a technically good study. LV size, wall thickness and systolic function are normal, with an EF greater than 55%. The left kenzie tricular size is normal. The right ventricle is normal in size. The left atrial size is normal. The right atrial size is normal. There is mild aortic valve sclerosis. There is no evidence of aortic regurgitation. Mild mitral regurgitation is present. Mild tricuspid regurgitation present. Right ventricular systolic pressure is normal at < 35 mmHg. There is no pulmonic regurgitation present. There is no pericardial effusion. CONCLUSIONS -------- 1. LV size, wall thickness and systolic function are normal, with an EF greater than 55%. 2. The left ventricular size is normal. 3. The right ventricle is normal in size. 4. The left atrial size is normal. 5. The right atrial size is normal. 6. There is mild aortic valve sclerosis. 7. Mild mitral regurgitation is present. 8. Mild tricuspid regurgitation present. 9. There is no pericardial effusion. ORDNANCE MECHANIC: Emma Miramontes RDCS
== END 2021-12-02 18:47 | disposition home or self-care (01) ==
LOC: EC 22:06 → 6NMEDSUR 12-02 09:12
PROVIDERS: ADMIT Internal Medicine; ATTEND Internal Medicine
DX: R06.09 Other forms of dyspnea (principal); R06.02 Shortness of breath; R00.0 Tachycardia, unspecified; R00.1 Bradycardia, unspecified; R00.2 Palpitations; R07.89 Other chest pain; J44.9 Chronic obstructive pulmonary disease, unspecified; E78.5 Hyperlipidemia, unspecified; F41.9 Anxiety disorder, unspecified; I10 Essential (primary) hypertension; Z20.822 Contact with and (suspected) exposure to COVID-19; Z63.79 Other stressful life events affecting family and household; Z90.49 Acquired absence of other specified parts of digestive tract; Z87.891 Personal history of nicotine dependence; Z90.710 Acquired absence of both cervix and uterus; Z79.899 Other long term (current) drug therapy
CPT/HCPCS: 99285; 36415; 93005; 93306; 85379; 83880; 80061; 80053; 84443; 83735; 84484; 85025; 85610; 85730; 83036; 87635; 71046; G0378

== ENCOUNTER 2024-10-24 21:04 | Inpatient (IN) | payer MEDICARE, OTHER ==
[2024-10-24] MEDS: IPRATROPIUM-ALBUTEROL 3 ML NEB INHALATION STA (21:17)
[2024-10-24 21:34] LABS: Basophils % (A) 0 %; Eosinophils # (A) 0.1 k/uL (0-0.7); Eosinophils % (A) 1 %; HCT 44.4 % (34.0-46.0); HGB 14.7 gm/dL (11.4-16.0); Lymphocytes # (A) 0.7 k/uL (1.0-4.8); Lymphocytes % (A) 6 %; MCH 32.1 pg (25.0-35.0); MCHC 33.2 g/dL (31.0-37.0); MCV 96.6 fL (80.0-100.0); Mean Platelet Volume 7.3; Monocytes # (A) 0.7 k/uL (0-1.0); Monocytes % (A) 6 %; Neutrophils # (A) 10.4 k/uL (1.3-7.7); Neutrophils % (A) 87 %; Platelet Count 218 k/uL (150-450); RBC 4.59 m/uL (3.80-5.40); RDW 12.6 % (11.5-15.5)
[2024-10-24] MEDS: methylPREDNISolone SOD SUCCI 125 MG/2 ML VIAL IV STA (21:35)
[2024-10-24] MEDS: MAGNESIUM SULFATE-D5W PMX 1 GM in DEXTROSE/WATER 1 100ML.BAG IVPB STA (21:35)
[2024-10-24 21:49] LABS: Partial Thromboplastin Time 25.5 sec (22.0-30.0); Prothrombin Time 10.7 sec (10.0-12.5)
--- NOTE | 2024-10-24 21:53 | XR ---
EXAMINATION TYPE: XR chest 1V portable DATE OF EXAM: 10/24/2024 9:32 PM COMPARISON: 12/01/2021 CLINICAL INDICATION: Female, 79 years old with history of sob, TECHNIQUE: XR chest 1V portable view(s) obtained. FINDINGS: The heart size is normal. The pulmonary vasculature is normal. Hyperinflation is present. Minimal effusions are not excluded. Correlate for COPD IMPRESSION: 1. Minimal costophrenic angle pleural effusions may be present. 2. Clinical consideration for COPD [facility], , 10/24/2024 9:51 PM
[2024-10-24 21:57] LABS: ALT 20 U/L (4-34); AST 31 U/L (14-36); African American GFR (CKD) >90 (>60 ml/min/1.73 sqM); Albumin 4.6 g/dL (3.5-5.0); Alkaline Phosphatase 65 U/L (38-126); Anion Gap 11 mmol/L; Blood Urea Nitrogen 17 mg/dL (7-17); Calcium 9.6 mg/dL (8.4-10.2); Carbon Dioxide 26 mmol/L (22-30); Chloride 98 mmol/L (98-107); Glucose 148 mg/dL (74-99); Non-African American GFR(CKD) >90 (>60 ml/min/1.73 sqM); Sodium 135 mmol/L (137-145); Total Bilirubin 1.5 mg/dL (0.2-1.3); Total Protein 7.2 g/dL (6.3-8.2)
[2024-10-24 22:05] LABS: NT-Pro-B-Type Natriuretic Pept 496 pg/mL
[2024-10-24 22:11] LABS: Influenza A Detected (Not Detectd); Influenza B Not Detected (Not Detectd); RSV Not Detected (Not Detectd)
[2024-10-24] MEDS ORDERED: NALOXONE 0.4 MG/ML 1 ML VIAL IV PRN (22:46)
--- NOTE | 2024-10-24 22:46 | ED ---
SOB HPI - General Chief Complaint: Shortness of Breath Stated Complaint: PREETI Time Seen by Provider: 10/24/24 21:10 Source: EMS Mode of arrival: EMS - History of Present Illness Initial Comments: 79-year-old female with past medical history of COPD not on home oxygen who presents emergency department with increased work of breathing. States that she started having cold-like symptoms this morning. Admits to cough and congestion. Denies any sick contacts. Work of breathing became worse over the course of the day she. She did try to take a breathing treatment at home and when she did not feel any better she called EMS. They did provide her with a DuoNeb breath ing treatment. She was placed on 8 L of oxygen. Room pulse ox was not obtained because patient had significant increased work of breathing. She denies any fevers but does admit to a headache. Admits nausea without vomiting. Denies any chest pain. No history of cardiac disease. No history of DVT or PE. No calf pain or swelling. 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 States she is never been hospitalized for her breathing before. No other alleviating, precipitating modifying factors - Related Data Home Medications Medication Instructions Recorded Confirmed Atenolol/Chlorthalidone [Tenoretic 0.5 tab PO DAILY 02/28/18 12/02/21 50 Tablet] Multivitamin [Multivitamins Adult 2 tab PO DAILY 02/28/18 12/02/21 Gummies] Pravastatin Sodium [Pravachol] 20 mg PO DAILY 02/28/18 12/02/21 Calcium Carbonate [Calcium] 600 mg PO DAILY 12/02/21 12/02/21 Cholecalciferol (Vitamin D3) 75 mcg PO DAILY 12/02/21 12/02/21 [Vitamin D3 (3000 Iu)] Ferrous Sulfate [Iron (65 MG 325 mg PO DAILY 12/02/21 12/02/21 Elemental)] Ibandronate Sodium [Boniva] 150 mg PO QMONTHLY 12/02/21 12/02/21 Previous Rx's Medication Instructions Recorded Albuterol Inhaler [Ventolin Hfa 1 puff INHALATION RT-QID PRN #8 gm 12/02/21 Inhaler] Allergies Allergy/AdvReac Type Severity Reaction Status Date / Time No Known Allergies Allergy Verified 10/24/24 21:17 Review of Systems ROS Statement: Those systems with pertinent positive or pertinent negative responses have been documented in the HPI. ROS Other: All systems not noted in ROS Statement are negative. Past Medical History Past Medical History: Chest Pain / Angina, Hyperlipidemia, Hypertension, Vascular Disorder Additional Past Medical History / Comment(s): Past Guillian [place], osteoporosis, benign colon polyp, past stool + OB, History of Any Multi-Drug Resistant Organisms: None Reported Past Surgical History: Appendectomy, Section, Hysterectomy, Orthopedic Surgery Additional Past Surgical History / Comment(s): Ovarian cystectomy/appendectomy, colonoscopy/benign polypectomy, bilateral carpal tunnel releases bilaterally twice. Past Anesthesia/Blood Transfusion Reactions: No Reported Reaction Past Psychological History: No Psychological Hx Reported Smoking Status: Former smoker - Past Family History Mother Family Medical History: No Reported History Additional Family Medical History / Comment(s): Mother was healthy Father Family Medical History: Myocardial Infarction ([place]) Additional Family Medical History / Comment(s): Father passed from a [place] at the age of 54yrs. General Exam General appearance: alert, in distress Head exam: Present: atraumatic, normocephalic, normal inspection Eye exam: Present: normal appearance, PERRL, EOMI. Absent: scleral icterus, conjunctival injection, periorbital swelling Respiratory exam: Present: wheezes, accessory muscle use Cardiovascular Exam: Present: normal rhythm, tachycardia GI/Abdominal exam: Present: soft, normal bowel sounds. Absent: distended, tenderness, guarding, rebound, rigid Course Vital Signs 10/24/24 10/24/24 10/24/24 21:05 21:20 21:21 Temperature 99.4 F Pulse Rate 120 H 118 H Respiratory 24 Rate Blood Pressure 145/92 O2 Sat by Pulse 98 Oximetry Fraction of 60 Inspired Oxygen (FIO2) 10/24/24 10/24/24 10/24/24 21:28 22:30 23:50 Temperature Pulse Rate 118 H 105 H 100 Respiratory 18 20 Rate Blood Pressure 124/77 O2 Sat by Pulse 99 Oximetry Fraction of Inspired Oxygen (FIO2) 10/25/24 10/25/24 10/25/24 00:02 00:16 03:28 Temperature Pulse Rate 112 H 106 H 93 Respiratory 20 18 Rate Blood Pressure 160/90 131/75 O2 Sat by Pulse 93 L 97 Oximetry Fraction of Inspired Oxygen (FIO2) Medical Decision Making - Medical Decision Making Was pt. sent in by a medical professional or institution ([facility], BOILER COVERER HELPER, urgent care, hospital, or long-term...) When possible be specific @ -No Did you speak to anyone other than the patient for history (EMS, parent, family, police, friend...)? What history was obtained from this source @ -Spoke with EMS for history Did you review nursing and triage notes (agree or disagree)? Why? @ -I reviewed and agree with nursing and triage notes Were old charts reviewed (outside hosp., previous admission, EMS record, old EKG, old radiological studies, urgent care reports/EKG's, long-term records)? Report findings @ -No old charts were reviewed Differential Diagnosis (chest pain, altered mental status, abdominal pain women, abdominal pain men, vaginal bleeding, weakness, fever, dyspnea, syncope, headache, dizziness, GI bleed, back pain, seizure, CVA, palpatations, mental health, musculoskeletal)? @ -Differential Dyspnea: Coronary syndrome, arrhythmia, tamponade, asthma, COPD, pulmonary embolism, pneumonia, pneumothorax, pulmonary effusion, anaphylaxis, diabetic ketoacidosis, flailed chest, pulmonary contusion, diaphragmatic rupture, anemia, neuromuscular, this is not meant to be an all-inclusive list. EKG interpreted by me (3pts min.). @ -yes and demonstrates sinus tachycardia with a rate of 111. UT interval 145. QRS 73. QTc of 374. No acute ST segment elevations. Mild ST depression inferior and lateral leads X-rays interpreted by me (1pt min.). @ -Yes and demonstrates no acute process CT interpreted by me (1pt min.). @ -None done U/S interpreted by me (1pt. min.). @ -None done What testing was considered but not performed or refused? (CT, X-rays, U/S, labs)? Why? @ -None What meds were considered but not given or refused? Why? @ -None Did you discuss the management of the patient with other professionals (professionals i.e. [facility], BOILER COVERER HELPER, lab, RT, psych nurse, outreach and education social worker, house builder, teacher, collection officer, case folder)? Give summary @ -Spoke with Dr. Barone for the admission Was smoking cessation discussed for >3mins.? @ -No Was critical care preformed (if so, how long)? @ -Yes, 35 minutes for management of BiPAP respiratory failure Were there social determinants of health that impacted care today? How? (Homelessness, low income, unemployed, alcoholism, drug addiction, transportation, low edu. Level, literacy, decrease access to med. care, longterm, rehab)? @ -No Was there de-escalation of care discussed even if they declined (Discuss DNR or withdrawal of care, Hospice)? DNR status @ -No What co-morbidities impacted this encounter? (DM, HTN, Smoking, COPD, CAD, Cancer, CVA, ARF, Chemo, Hep., AIDS, mental health diagnosis, sleep apnea, morbid obesity)? @ -COPD Was patient admitted / discharged? Hospital course, mention meds given and route, prescriptions, significant lab abnormalities, going to OR and other pertinent info. @ -Upon arrival patient seen and evaluated in trauma 1. Thorough history and physical exam was performed. IV was established. Laboratory studies are conducted. Chest x-ray was performed. Patient was immediately placed on BiPAP upon her arrival and does have improvement in her breathing. She was given 1 g of magnesium and 125 Solu-Medrol. Patient does test positive for influenza A. She is started on Tamiflu due to her severity of symptoms. I recommended admission. Patient was trialed off BiPAP. Patient was agreeable with admission. I spoke with Dr. Barone for the admission Undiagnosed new problem with uncertain prognosis? @ -No Drug Therapy requiring intensive monitoring for toxicity (Heparin, Nitro, Insulin, Cardizem)? @ -No Were any procedures done? @ -No Diagnosis/symptom? @ -Acute BiPAP dependent respiratory failure, acute exacerbation of COPD, influenza A Acute, or Chronic, or Acute on Chronic? @ -Acute Uncomplicated (without systemic symptoms) or Complicated (systemic symptoms)? @ -Complicated Side effects of treatment? @ -No Exacerbation, Progression, or Severe Exacerbation? @ -Yes Poses a threat to life or bodily function? How? (Chest pain, [place], CT, pneumonia, PE, COPD, DKA, ARF, appy, cholecystitis, CVA, Diverticulitis, Homicidal, Suicidal, threat to staff... and all critical care pts) @ -Yes this patient had significant work of breathing - Lab Data Result diagrams: 10/25/24 05:20 10/25/24 05:20 Lab Results 10/24/24 10/24/24 10/24/24 Range/Units 21:22 21:22 21:22 WBC 12.0 H (3.8-10.6) k/uL RBC 4.59 (3.80-5.40) m/uL Hgb 14.7 (11.4-16.0) gm/dL Hct 44.4 (34.0-46.0) % MCV 96.6 (80.0-100.0) fL MCH 32.1 (25.0-35.0) pg MCHC 33.2 (31.0-37.0) g/dL RDW 12.6 (11.5-15.5) % Plt Count 218 (150-450) k/uL MPV 7.3 Neutrophils % 87 % Lymphocytes % 6 % Monocytes % 6 % Eosinophils % 1 % Basophils % 0 % Neutrophils # 10.4 H (1.3-7.7) k/uL Lymphocytes # 0.7 L (1.0-4.8) k/uL Monocytes # 0.7 (0-1.0) k/uL Eosinophils # 0.1 (0-0.7) k/uL Basophils # 0.0 (0-0.2) k/uL PT 10.7 (10.0-12.5) sec INR 1.0 (<1.2) APTT 25.5 (22.0-30.0) sec Sodium 135 L (137-145) mmol/L Potassium 4.0 (3.5-5.1) mmol/L Chloride 98 (98-107) mmol/L Carbon Dioxide 26 (22-30) mmol/L Anion Gap 11 mmol/L BUN 17 (7-17) mg/dL Creatinine 0.55 (0.52-1.04) mg/dL Est GFR (CKD-EPI)AfAm >90 (>60 ml/min/1.73 sqM) Est GFR (CKD-EPI)NonAf >90 (>60 ml/min/1.73 sqM) Glucose 148 H (74-99) mg/dL Plasma Lactic Acid William (0.7-2.0) mmol/L Calcium 9.6 (8.4-10.2) mg/dL Total Bilirubin 1.5 H (0.2-1.3) mg/dL AST 31 (14-36) U/L ALT 20 (4-34) U/L Alkaline Phosphatase 65 (38-126) U/L Troponin I (0.000-0.034) ng/mL NT-Pro-B Natriuret Pep 496 pg/mL Total Protein 7.2 (6.3-8.2) g/dL Albumin 4.6 (3.5-5.0) g/dL Influenza Type A (PCR) (Not Detectd) Influenza Type B (PCR) (Not Detectd) RSV (PCR) (Not Detectd) SARS-CoV-2 (PCR) (Not Detectd) 10/24/24 10/24/24 10/24/24 Range/Units 21:22 21:22 21:22 WBC (3.8-10.6) k/uL RBC (3.80-5.40) m/uL Hgb (11.4-16.0) gm/dL Hct (34.0-46.0) % MCV (80.0-100.0) fL MCH (25.0-35.0) pg MCHC (31.0-37.0) g/dL RDW (11.5-15.5) % Plt Count (150-450) k/uL MPV Neutrophils % % Lymphocytes % % Monocytes % % Eosinophils % % Basophils % % Neutrophils # (1.3-7.7) k/uL Lymphocytes # (1.0-4.8) k/uL Monocytes # (0-1.0) k/uL Eosinophils # (0-0.7) k/uL Basophils # (0-0.2) k/uL PT (10.0-12.5) sec INR (<1.2) APTT (22.0-30.0) sec Sodium (137-145) mmol/L Potassium (3.5-5.1) mmol/L Chloride (98-107) mmol/L Carbon Dioxide (22-30) mmol/L Anion Gap mmol/L BUN (7-17) mg/dL Creatinine (0.52-1.04) mg/dL Est GFR (CKD-EPI)AfAm (>60 ml/min/1.73 sqM) Est GFR (CKD-EPI)NonAf (>60 ml/min/1.73 sqM) Glucose (74-99) mg/dL Plasma Lactic Acid William 1.9 (0.7-2.0) mmol/L Calcium (8.4-10.2) mg/dL Total Bilirubin (0.2-1.3) mg/dL AST (14-36) U/L ALT (4-34) U/L Alkaline Phosphatase (38-126) U/L Troponin I <0.012 (0.000-0.034) ng/mL NT-Pro-B Natriuret Pep pg/mL Total Protein (6.3-8.2) g/dL Albumin (3.5-5.0) g/dL Influenza Type A (PCR) Detected A (Not Detectd) Influenza Type B (PCR) Not Detected (Not Detectd) RSV (PCR) Not Detected (Not Detectd) SARS-CoV-2 (PCR) Not Detected (Not Detectd) Disposition Clinical Impression: Influenza A, BiPAP (biphasic positive airway pressure) dependence, COPD exacerbation Disposition: ADMITTED IP TO THIS [facility] Condition: Serious Is patient prescribed a controlled substance at d/c from ED?: No Time of Disposition: 22:46 Decision to Admit Reason: Admit from EC Decision Date: 10/24/24 Decision Time: 22:46
[2024-10-24] MEDS: OSELTAMIVIR 75 MG CAP PO SCH (23:08)
[2024-10-24] MEDS: IPRATROPIUM-ALBUTEROL 3 ML NEB INHALATION SCH (23:50)
[2024-10-25] MEDS: ACETAMINOPHEN TAB 325 MG TAB PO PRN (00:14)
[2024-10-25] MEDS ORDERED: ALBUTEROL NEBULIZED 2.5 MG/3 ML INHALATION PRN (01:23)
--- NOTE | 2024-10-25 01:26 | P.HPIM ---
History of Present Illness H&P Date: 10/24/24 Patient is a 79-year-old female with hyperlipidemia, hypertension, osteoporosis, CAD, COPD here for shortness of breath. On 10/23 patient reported that she did not feel well and she was getting short of breath. She was noted to have a nonproductive cough, runny nose at that time. However, on 10/24 patient noted her shortness of breath did not improve despite using albuterol inhaler and nebulizer. She also reported to experience unilateral pulsating headache, palpitations and 1 episode of vomiting that was nonbloody. She denied fever, chills, lower extremity swelling, chest pain, abdominal pain, recent illness, or recent travel. She was brought in by EMS with albuterol and DuoNeb initiated in the field. Chest x-ray on admission showed minimal costophrenic angle pleural effusions, normal heart size and normal pulmonary vasculature, hyperinflation present correlate for COPD. Labs on admission showed WBC 12, hemoglobin 14.7, platelet count 218, PT 10.7, INR 1, PTT 25.5, sodium 135, potassium 4, chloride 98, BUN 17, creatinine 0.55, glucose 148, lactic acid 1.9, calcium 9.6, AST 31, ALT 20, alk phos 65, troponin less than 0.0 12, proBNP 496, albumin 4.6. Positive for influenza type A. Vitals on admission temperature 99.4, pulse rate 120, respiratory rate 24, blood pressure 145/92, O2 saturation 98% on nonrebreather and 15 L. ED documentation reviewed. DuoNeb, and Solu-Medrol given once in the ED. Review of systems: Pertinent positives and negatives as discussed in HPI, a complete review of systems was performed and all other systems are negative. Social history: Tobacco: former smoker. Active for about 60 years. 1 pack per day. Alcohol: Recreational drugs: denies illicit or recreational drug use Travel: Physical examination: Vital signs reviewed General: non toxic, no distress, appears at stated age, on BiPAP Derm: no unusual rashes/lesions, warm Head: atraumatic, normocephalic, symmetric Eyes: EOMI, anicteric sclera, pupils equal round reactive to light ENT: Nose and ears atraumatic Neck: No cervical lymphadenopathy, trachea midline, supple Mouth: no lip lesion, mucus membranes moist Cardiovascular: S1S2 reg, no murmur Lungs: diffuse expiratory wheezing, no rhonchi, no rales, no accessory muscle use Abdominal: soft, nondistended, nontender to palpation, no guarding Ext: muscle strength 5 out of 5 in all 4 extremities grossly, no gross muscle atrophy, no contractures, positive dorsalis pedis pulse bilateral, no edema Neuro: CN II-XI grossly intact, no gross focal neuro deficits Psych: Alert and oriented x 3, appropriate affect and mood Assessment/Plan: #. Acute respiratory failure secondary to COPD exacerbation #. Influenza type A infection -Chest x-ray on admission showed minimal costophrenic angle pleural effusions, normal heart size and normal pulmonary vasculature, hyperinflation present correlate for COPD -Currently on BiPAP. Wean off as tolerated. -Solu-Medrol IV initiated in the ED. Continue with Solu-Medrol 40 mg IV every 8 hours -DuoNebs nebulizer initiated in the ED. Continue with DuoNebs inhalation every 4 hours RTC and PRN -Continue with oseltamivir 75 mg p.o. twice daily -CBC in the morning -ABG pending -Cardiac monitoring -Consult Pulmonology #. Hyperglycemia No history of diabetes -A1c and BMP in the morning -POC glucose checks ACHS Chronic Conditions: #. Hyperlipidemia #. Hypertension #. Osteoporosis #. CAD -continue home meds once reconciled F: Oral intake E: None for now N: Regular diet A: Can self ambulate DVT ppx: Lovenox 40mg subqu daily GI ppx: Protonix 40mg IV daily Dispo: The patient is admitted with an anticipated greater than 2 midnight stay for evaluation of COPD exacerbation and pneumonia CODE STATUS: Full Discussed with: patient and partner Anticipated discharge place: home Julia Martinez MD PGY-1 IM Dictation was produced using [employer] dictation software. please excuse any grammatical, word or spelling errors. Past Medical History Past Medical History: Chest Pain / Angina, Hyperlipidemia, Hypertension, Vascular Disorder Additional Past Medical History / Comment(s): Past Guillian [place], osteoporosis, benign colon polyp, past stool + OB, History of Any Multi-Drug Resistant Organisms: None Reported Past Surgical History: Appendectomy, Section, Hysterectomy, Orthopedic Surgery Additional Past Surgical History / Comment(s): Ovarian cystectomy/appendectomy, colonoscopy/benign polypectomy, bilateral carpal tunnel releases bilaterally twice. Past Anesthesia/Blood Transfusion Reactions: No Reported Reaction Past Psychological History: No Psychological Hx Reported Smoking Status: Former smoker - Past Family History Mother Family Medical History: No Reported History Additional Family Medical History / Comment(s): Mother was healthy Father Family Medical History: Myocardial Infarction ([place]) Additional Family Medical History / Comment(s): Father passed from a [place] at the age of 54yrs. Medications and Allergies Home Medications Medication Instructions Recorded Confirmed Type Atenolol/Chlorthalidone [Tenoretic 0.5 tab PO DAILY 02/28/18 12/02/21 History 50 Tablet] Multivitamin [Multivitamins Adult 2 tab PO DAILY 02/28/18 12/02/21 History Gummies] Pravastatin Sodium [Pravachol] 20 mg PO DAILY 02/28/18 12/02/21 History Albuterol Inhaler [Ventolin Hfa 1 puff INHALATION RT-QID PRN #8 gm 12/02/21 Rx Inhaler] Calcium Carbonate [Calcium] 600 mg PO DAILY 12/02/21 12/02/21 History Cholecalciferol (Vitamin D3) 75 mcg PO DAILY 12/02/21 12/02/21 History [Vitamin D3 (3000 Iu)] Ferrous Sulfate [Iron (65 MG 325 mg PO DAILY 12/02/21 12/02/21 History Elemental)] Ibandronate Sodium [Boniva] 150 mg PO QMONTHLY 12/02/21 12/02/21 History Allergies Allergy/AdvReac Type Severity Reaction Status Date / Time No Known Allergies Allergy Verified 10/24/24 21:17 Physical Exam Vitals: Vital Signs Temp Pulse Resp BP Pulse Ox FiO2 10/24/24 22:30 105 H 20 124/77 99 10/24/24 21:28 118 H 18 10/24/24 21:21 60 10/24/24 21:20 118 H 10/24/24 21:05 99.4 F 120 H 24 145/92 98 Intake and Output 10/24/24 10/24/24 10/24/24 06:59 14:59 22:59 Other: Weight 45.359 kg Results CBC & Chem 7: 10/24/24 21:22 10/24/24 21:22 Labs: Abnormal Lab Results - Last 24 Hours (Table) 0210/24/24 10/24/24 Range/Units 21:22 21:22 21:22 WBC 12.0 H (3.8-10.6) k/uL Neutrophils # 10.4 H (1.3-7.7) k/uL Lymphocytes # 0.7 L (1.0-4.8) k/uL Sodium 135 L (137-145) mmol/L Glucose 148 H (74-99) mg/dL Total Bilirubin 1.5 H (0.2-1.3) mg/dL Influenza Type A (PCR) Detected A (Not Detectd)
[2024-10-25] MEDS ORDERED: IPRATROPIUM-ALBUTEROL 3 ML NEB INHALATION PRN (02:35)
[2024-10-25 06:27] LABS: Glucose,Whole Blood 168 mg/dL (70-110)
[2024-10-25 07:20] LABS: Basophils % (A) 0 %; Eosinophils % (A) 0 %; HCT 44.4 % (34.0-46.0); HGB 14.7 gm/dL (11.4-16.0); Lymphocytes # (A) 0.5 k/uL (1.0-4.8); Lymphocytes % (A) 5 %; MCH 32.8 pg (25.0-35.0); MCHC 33.1 g/dL (31.0-37.0); MCV 98.8 fL (80.0-100.0); Mean Platelet Volume 7.8; Monocytes # (A) 0.2 k/uL (0-1.0); Monocytes % (A) 2 %; Neutrophils # (A) 8.8 k/uL (1.3-7.7); Neutrophils % (A) 93 %; Platelet Count 221 k/uL (150-450); RBC 4.49 m/uL (3.80-5.40); RDW 12.7 % (11.5-15.5); WBC 9.5 k/uL (3.8-10.6)
[2024-10-25 08:24] LABS: African American GFR (CKD) >90 (>60 ml/min/1.73 sqM); Anion Gap 12 mmol/L; Blood Urea Nitrogen 16 mg/dL (7-17); Calcium 9.7 mg/dL (8.4-10.2); Carbon Dioxide 28 mmol/L (22-30); Chloride 96 mmol/L (98-107); Glucose 166 mg/dL (74-99); Non-African American GFR(CKD) 86 (>60 ml/min/1.73 sqM); Sodium 136 mmol/L (137-145)
[2024-10-25] MEDS: PANTOPRAZOLE 40 MG/10 ML VIAL IVP SCH (08:24)
[2024-10-25] MEDS: methylPREDNISolone SOD SUCCI 40 MG/ML 1 ML VIAL IV SCH (08:24)
[2024-10-25] MEDS: ENOXAPARIN 40 MG/0.4 ML SYRINGE SQ SCH (08:25)
[2024-10-25] MEDS: guaiFENesin-DM 600/30MG 1 EACH TAB.ER.12H PO PRN (09:12)
[2024-10-25] MEDS: SYMBICORT 160-4.5 MCG INHALER INHALATION SCH (09:29)
[2024-10-25] MEDS: methylPREDNISolone SOD SUCCI 125 MG/2 ML VIAL IV SCH (11:28)
[2024-10-25] MEDS: atenoloL 50 MG TAB PO SCH (11:50)
[2024-10-25] MEDS: PRAVASTATIN SODIUM 20 MG TAB PO SCH (11:50)
[2024-10-25] MEDS: CHLORTHALIDONE 25 MG TAB PO SCH (12:15)
--- NOTE | 2024-10-25 12:53 | P.CNPUL ---
History of Present Illness Consult date: 10/25/24 Requesting physician: Etelvina Barone Reason for consult: dyspnea, cough, COPD, hypoxemia Chief complaint: Shortness of breath, cough. History of present illness: Pulmonary consult dated October 25, 2024. 79-year-old female seen in the emergency department, on October 24, at about 11:00 PM. The patient has a history of COPD, and comes into the emergency room, complaining of increasing shortness of breath, chest congestion, cough, wheezing, and chest tightness. The patient took a breathing treatment at home, but did not feel any better, and then called 911, and she was brought into the emergency department, brought by EMS, and received a DuoNeb treatment, and cora. She was placed on 8 L of oxygen by nasal cannula. We see her today in room 352. Her complaints include shortness of breath, cough, wheezing, and chest tightness. 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 She was a smoker in the past. She has a history of COPD, angina, hyperlipidemia, hypertension, Guillain-Singh syndrome, osteoporosis, and colonic polyp. She does not take any breathing medications or oxygen. Current laboratory data includes a white count 9.5, hemoglobin 14.7, hematocrit 44.4, and a platelet count of 221,000. Coag studies are normal. Sodium 136, potassium 4, chloride 96, CO2 28, BUN 16, creatinine 0.64. Glucose 168. Calcium 9.7. She did test positive for influenza A. Chest x-ray showed findings consistent with COPD. Review of Systems REVIEW OF SYSTEMS: CONSTITUTIONAL: [Negative.] NEUROLOGIC: [ Negative.] HEENT: [ Negative.] CARDIAC: [Negative.] PULMONARY: Shortness of breath, cough, chest tightness, and wheezing. GI: [Negative.] : [Negative.] RHEUMATOLOGIC: [ Negative.] IMMUNOLOGIC: [ Negative.] ENDOCRINE: [Negative. ] DERMATOLOGIC: [Negative.] Past Medical History Past Medical History: Chest Pain / Angina, Hyperlipidemia, Hypertension, Vascular Disorder Additional Past Medical History / Comment(s): Past Guillian Spencer, osteoporosis, benign colon polyp, past stool + OB, History of Any Multi-Drug Resistant Organisms: None Reported Past Surgical History: Appendectomy, Section, Hysterectomy, Orthopedic Surgery Additional Past Surgical History / Comment(s): Ovarian cystectomy/appendectomy, colonoscopy/benign polypectomy, bilateral carpal tunnel releases bilaterally twice. Past Anesthesia/Blood Transfusion Reactions: No Reported Reaction Past Psychological History: No Psychological Hx Reported Smoking Status: Former smoker - Past Family History Mother Family Medical History: No Reported History Additional Family Medical History / Comment(s): Mother was healthy Father Family Medical History: Myocardial Infarction (OR) Additional Family Medical History / Comment(s): Father passed from a OR at the age of 54yrs. Medications and Allergies Home Medications Medication Instructions Recorded Confirmed Type Atenolol/Chlorthalidone [Tenoretic 1 tab PO DAILY 02/28/18 10/25/24 History 50 Tablet] Multivitamin [Multivitamins Adult 2 tab PO DAILY 02/28/18 12/02/21 History Gummies] Pravastatin Sodium [Pravachol] 20 mg PO DAILY 02/28/18 10/25/24 History Albuterol Inhaler [Ventolin Hfa 1 puff INHALATION RT-QID PRN #8 gm 12/02/21 Rx Inhaler] Calcium Carbonate [Calcium] 600 mg PO DAILY 12/02/21 12/02/21 History Cholecalciferol (Vitamin D3) 75 mcg PO DAILY 12/02/21 10/25/24 History [Vitamin D3 (3000 Iu)] Ferrous Sulfate [Iron (65 MG 325 mg PO DAILY 12/02/21 12/02/21 History Elemental)] Ibandronate Sodium [Boniva] 150 mg PO QMONTHLY 12/02/21 12/02/21 History Allergies Allergy/AdvReac Type Severity Reaction Status Date / Time No Known Allergies Allergy Verified 10/24/24 21:17 Physical Exam Osteopathic Statement: *. No significant issues noted on an osteopathic structural exam other than those noted in the History and Physical/Consult. Vitals: Vital Signs Temp Pulse Pulse Resp BP BP Pulse Ox 10/25/24 12:24 108 H 10/25/24 12:15 112 H 10/25/24 12:00 102 H 18 145/73 94 L 10/25/24 09:15 102 H 10/25/24 09:05 108 H 10/25/24 08:00 97.7 F 101 H 20 174/74 92 L 10/25/24 05:03 86 17 10/25/24 04:36 98.4 F 91 17 142/68 96 10/25/24 03:28 93 18 131/75 97 10/25/24 00:16 106 H 20 160/90 93 L 10/25/24 00:02 112 H 10/24/24 23:50 100 10/24/24 22:30 105 H 20 124/77 99 10/24/24 21:28 118 H 18 10/24/24 21:21 10/24/24 21:20 118 H 10/24/24 21:05 99.4 F 120 H 24 145/92 98 FiO2 10/25/24 12:24 10/25/24 12:15 10/25/24 12:00 10/25/24 09:15 10/25/24 09:05 10/25/24 08:00 10/25/24 05:03 10/25/24 04:36 10/25/24 03:28 10/25/24 00:16 10/25/24 00:02 10/24/24 23:50 10/24/24 22:30 10/24/24 21:28 10/24/24 21:21 60 10/24/24 21:20 10/24/24 21:05 Intake and Output 10/24/24 10/25/24 10/25/24 22:59 06:59 14:59 Intake Total 360 Balance 360 Intake: Oral 360 Other: Voiding Method Toilet Toilet # Voids 1 # Bowel Movements 0 Weight 45.359 kg 45.359 kg No acute distress, oriented 3. The patient is in no respiratory distress. She is sitting up in bed. She is on 2 L. Saturation is 96%. HEENT examination is grossly unremarkable. Mucous membranes are moist. No oral lesions. Neck supple. Full range of motion. No adenopathy thyromegaly or neck vein distention. Cardiovascular examination reveals regular rhythm rate. S1-S2 normal. No S3 or S4. No discernible murmur noted. Lungs reveal inspiratory and expiratory wheezes and rhonchi. No crackles. Breath sounds equal bilaterally. There is prolongation on forced maneuver. Abdomen soft bowel sounds are heard. No masses or tenderness. Extremities are intact. No cyanosis clubbing or edema. Skin is without rash or lesion. Neurologic examination is brief but nonfocal. Results - Laboratory Findings CBC and BMP: 10/25/24 05:20 10/25/24 05:20 PT/INR, D-dimer PT 10.7 sec (10.0-12.5) 10/24/24 21:22 INR 1.0 (<1.2) 10/24/24 21:22 Abnormal lab findings: Abnormal Labs 10/24/24 10/24/24 10/24/24 21:22 21:22 21:22 WBC 12.0 H Neutrophils # 10.4 H Lymphocytes # 0.7 L Sodium 135 L Chloride Glucose 148 H POC Glucose (mg/dL) Total Bilirubin 1.5 H Influenza Type A (PCR) Detected A 10/25/24 10/25/24 10/25/24 05:20 05:20 06:26 WBC Neutrophils # 8.8 H Lymphocytes # 0.5 L Sodium 136 L Chloride 96 L Glucose 166 H POC Glucose (mg/dL) 168 H Total Bilirubin Influenza Type A (PCR) - Diagnostic Findings Chest x-ray: image reviewed Assessment and Plan Assessment: Acute exacerbation of COPD, likely triggered by influenza A infection. Prior history of heavy tobacco use. History of angina pectoris. History of hyperlipidemia. History of hypertension. History of Guillain-Singh syndrome. History of osteoporosis. Benign colonic polyp. Plan: Plan dated October 25, 2024. The patient is placed on appropriate medications, including Tamiflu 75 mg twice a day, Solu-Medrol 60 mg every 6 hours, updrafts with albuterol sulfate ipratropium bromide, 4 times daily and as needed, and Symbicort, 160/4.5, 2 puffs twice a day. Labs, x-rays, and all medications are reviewed. We will continue to follow the patient, make recommendations. The patient is currently on 2 L. 55 minutes was spent with this patient, including time spent obtaining the history, examining the patient, reviewing pertinent laboratory data, x-rays, medications, as well as discussing the diagnosis, treatment, and prognosis, with the patient, and the patient's nursing staff. In addition, the patient's was in the room, will be evaluated the patient. Time with Patient: Greater than 30
--- NOTE | 2024-10-25 13:28 | P.PN ---
Subjective Progress Note Date: 10/25/24 Hospital Course: 79-year-old female with hyperlipidemia, hypertension, osteoporosis, CAD, COPD here for shortness of breath. Chest x-ray on admission showed minimal costophrenic angle pleural effusions, normal heart size and normal pulmonary vasculature, hyperinflation present correlate for COPD. Labs on admission showed WBC 12, hemoglobin 14.7, platelet count 218, PT 10.7, INR 1, PTT 25.5, sodium 135, potassium 4, chloride 98, BUN 17, creatinine 0.55, glucose 148, lactic acid 1.9, calcium 9.6, AST 31, ALT 20, alk phos 65, troponin less than 0.0 12, proBNP 496, albumin 4.6. Positive for influenza type A. Vitals on admission temperature 99.4, pulse rate 120, respiratory rate 24, blood pressure 145/92, O2 saturation 98% on nonrebreather and 15 L. Pulmonology consulted. Patient being treated with IV steroids, Tamiflu, bronchodilators. Requirements gone down. Subjective: Patient seen and examined at bedside. No acute events overnight. Pertinent positives and negatives as discussed above, a complete review of systems was performed and all other systems are negative. Vitals Signs Reviewed. General: Nontoxic, no distress, appears at stated age Derm: Warm, dry Head: Atraumatic, normocephalic, symmetric Eyes: EOMI, no lid lag, anicteric sclera Mouth: No lip lesion, mucus membranes moist Cardiovascular: S1S2 reg, no murmur Lungs: CTA bilateral, no rhonchi, no rales, no accessory muscle use, supplemental oxygen Abdominal: Soft, nontender to palpation, no guarding, no appreciable organomegaly Ext: No gross muscle atrophy, no edema, no contractures Neuro: CN II-XI grossly intact, no focal neuro deficits Psych: Alert, oriented, appropriate affect Data Reviewed Today: Pertinent Labs: WBC 9.5, hemoglobin 14.7, sodium 136, creatinine 0.64 Imaging: No new imaging Assessment and Plan: Patient is severely ill, needs close monitoring. Prognosis guarded. Active: Acute COPD exacerbation Acute hypoxic respiratory failure Influenza A infection -Discussed with pulmonology, Continue Solu-Medrol 60 IV every 6 hours, DuoNebs 4 times daily as needed, every 4 hours scheduled, Symbicort twice daily, flow 75 twice daily -Continue to wean oxygen Hyperglycemia -A1c pending Uncontrolled hypertension -Continue chlorthalidone 25 daily, atenolol 50 daily Chronic: CAD Osteoporosis Dyslipidemia DVT ppx: Lovenox Code status: Full code Anticipated discharge place: Pending clinical course Anticipated discharge time: Pending clinical course Objective - Vital Signs Vital signs: Vital Signs Temp 97.7 F 10/25/24 08:00 Pulse 108 H 10/25/24 12:24 Resp 18 10/25/24 12:00 BP 145/73 10/25/24 12:00 Pulse Ox 94 L 10/25/24 12:00 FiO2 60 10/24/24 21:21 Intake & Output 10/24/24 10/25/24 10/25/24 18:59 06:59 18:59 Intake Total 360 Balance 360 Weight 45.359 kg Intake: Oral 360 Other: Voiding Method Toilet Toilet # Voids 1 # Bowel Movements 0 - Labs CBC & Chem 7: 10/25/24 05:20 10/25/24 05:20 Labs: Abnormal Lab Results - Last 24 Hours (Table) 10/24/24 10/24/24 10/24/24 Range/Units 21:22 21:22 21:22 WBC 12.0 H (3.8-10.6) k/uL Neutrophils # 10.4 H (1.3-7.7) k/uL Lymphocytes # 0.7 L (1.0-4.8) k/uL Sodium 135 L (137-145) mmol/L Chloride (98-107) mmol/L Glucose 148 H (74-99) mg/dL POC Glucose (mg/dL) (70-110) mg/dL Total Bilirubin 1.5 H (0.2-1.3) mg/dL Influenza Type A (PCR) Detected A (Not Detectd) 10/25/24 10/25/24 10/25/24 Range/Units 05:20 05:20 06:26 WBC (3.8-10.6) k/uL Neutrophils # 8.8 H (1.3-7.7) k/uL Lymphocytes # 0.5 L (1.0-4.8) k/uL Sodium 136 L (137-145) mmol/L Chloride 96 L (98-107) mmol/L Glucose 166 H (74-99) mg/dL POC Glucose (mg/dL) 168 H (70-110) mg/dL Total Bilirubin (0.2-1.3) mg/dL Influenza Type A (PCR) (Not Detectd)
--- NOTE | 2024-10-26 11:13 | P.PN ---
Subjective Progress Note Date: 10/26/24 Hospital Course: 79-year-old female with hyperlipidemia, hypertension, osteoporosis, CAD, COPD here for shortness of breath. Chest x-ray on admission showed minimal costophrenic angle pleural effusions, normal heart size and normal pulmonary vasculature, hyperinflation present correlate for COPD. Labs on admission showed WBC 12, hemoglobin 14.7, platelet count 218, PT 10.7, INR 1, PTT 25.5, sodium 135, potassium 4, chloride 98, BUN 17, creatinine 0.55, glucose 148, lactic acid 1.9, calcium 9.6, AST 31, ALT 20, alk phos 65, troponin less than 0.0 12, proBNP 496, albumin 4.6. Positive for influenza type A. Vitals on admission temperature 99.4, pulse rate 120, respiratory rate 24, blood pressure 145/92, O2 saturation 98% on nonrebreather and 15 L. Pulmonology consulted. Patient being treated with IV steroids, Tamiflu, bronchodilators. Oxygen requirements gone down. Subjective: Patient seen and examined at bedside. No acute events overnight. Continues to have shortness of breath with ambulation Pertinent positives and negatives as discussed above, a complete review of s ystems was performed and all other systems are negative. Vitals Signs Reviewed. General: Nontoxic, no distress, appears at stated age Derm: Warm, dry Head: Atraumatic, normocephalic, symmetric Eyes: EOMI, no lid lag, anicteric sclera Mouth: No lip lesion, mucus membranes moist Cardiovascular: S1S2 reg, no murmur Lungs: CTA bilateral, no rhonchi, no rales, no accessory muscle use, supplemental oxygen Abdominal: Soft, nontender to palpation, no guarding, no appreciable organomegaly Ext: No gross muscle atrophy, no edema, no contractures Neuro: CN II-XI grossly intact, no focal neuro deficits Psych: Alert, oriented, appropriate affect Data Reviewed Today: Pertinent Labs: A1c 5.6 Imaging: No new imaging Assessment and Plan: Patient is severely ill, needs close monitoring. Prognosis guarded. Active: Acute COPD exacerbation Acute hypoxic respiratory failure Influenza A infection -Pulmonology following -Continue Solu-Medrol 60 IV every 6 hours, DuoNebs 4 times daily as needed, every 4 hours scheduled, Symbicort twice daily, flow 75 twice daily -Continue to wean oxygen Hyperglycemia -A1c 5.6 Uncontrolled hypertension -Continue chlorthalidone 25 daily, atenolol 50 daily Chronic: CAD Osteoporosis Dyslipidemia DVT ppx: Lovenox Code status: Full code Anticipated discharge place: Pending clinical course Anticipated discharge time: Pending clinical course Objective - Vital Signs Vital signs: Vital Signs Temp 98.2 F 10/26/24 08:00 Pulse 86 10/26/24 09:37 Resp 20 10/26/24 08:00 BP 114/68 10/26/24 08:00 Pulse Ox 94 L 10/26/24 08:00 FiO2 60 10/24/24 21:21 Intake & Output 10/25/24 10/26/24 10/26/24 18:59 06:59 18:59 Intake Total 1260 20 330 Balance 1260 20 330 Weight 45 kg Intake: IV 20 Invasive Line 1 20 Oral 1260 330 Other: Voiding Method Toilet Toilet Toilet # Voids 2 2 1 # Bowel Movements 0 0 - Labs CBC & Chem 7: 10/25/24 05:20 10/25/24 05:20
--- NOTE | 2024-10-26 11:32 | P.PN ---
Subjective Progress Note Date: 10/26/24 Principal diagnosis: Shortness of breath. Pulmonary consult dated October 25, 2024. 79-year-old female seen in the emergency department, on October 24, at about 11:00 PM. The patient has a history of COPD, and comes into the emergency room, complaining of increasing shortness of breath, chest congestion, cough, wheezing, and chest tightness. The patient took a breathing treatment at home, but did not feel any better, and then called 911, and she was brought into the emergency department, brought by EMS, and received a DuoNeb treatment, and cora. She was placed on 8 L of oxygen by nasal cannula. We see her today in room 352. Her complaints include shortness of breath, cough, wheezing, and chest tightness. 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 She was a smoker in the past. She has a history of COPD, angina, hyperlipidemia, hypertension, Guillain-Singh syndrome, osteoporosis, and colonic polyp. She does not take any breathing medications or oxygen. Current laboratory data includes a white count 9.5, hemoglobin 14.7, hematocrit 44.4, and a platelet count of 221,000. Coag studies are normal. Sodium 136, potassium 4, chloride 96, CO2 28, BUN 16, creatinine 0.64. Glucose 168. Calcium 9.7. She did test positive for influenza A. Chest x-ray showed findings consistent with COPD. Progress note dated October 26, 2024. 79-year-old female seen in room 352. The patient was admitted with a diagnosis of COPD exacerbation, likely triggered by influenza A. Currently, she is on 2 L. She is not receiving any IV fluids. She sitting in the bed, in no respiratory distress. She does have some tightness in the chest, wheezing, and cough. The cough is mostly nonproductive. No new laboratory data today. Objective - Vital Signs Vital signs: Vital Signs Temp 98.2 F 10/26/24 08:00 Pulse 86 10/26/24 09:37 Resp 20 10/26/24 08:00 BP 114/68 10/26/24 08:00 Pulse Ox 94 L 10/26/24 08:00 FiO2 60 10/24/24 21:21 Intake & Output 10/25/24 10/26/24 10/26/24 18:59 06:59 18:59 Intake Total 1260 20 330 Balance 1260 20 330 Weight 45 kg Intake: IV 20 Invasive Line 1 20 Oral 1260 330 Other: Voiding Method Toilet Toilet Toilet # Voids 2 2 1 # Bowel Movements 0 0 - Exam No acute distress, oriented 3. The patient is in no respiratory distress. She is sitting up in bed. She is on 2 L. HEENT examination is grossly unremarkable. Mucous membranes are moist. No oral lesions. Neck supple. Full range of motion. No adenopathy thyromegaly or neck vein distention. Cardiovascular examination reveals regular rhythm rate. S1-S2 normal. No S3 or S4. No discernible murmur noted. Lungs reveal inspiratory and expiratory wheezes and rhonchi. No crackles. Breath sounds equal bilaterally. There is prolongation on forced maneuver. Abdomen soft bowel sounds are heard. No masses or tenderness. Extremities are intact. No cyanosis clubbing or edema. Skin is without rash or lesion. Neurologic examination is brief but nonfocal. - Labs CBC & Chem 7: 10/25/24 05:20 10/25/24 05:20 Assessment and Plan Assessment: Acute exacerbation of COPD, likely triggered by influenza A infection. Prior history of heavy tobacco use. History of angina pectoris. History of hyperlipidemia. History of hypertension. History of Guillain-Singh syndrome. History of osteoporosis. Benign colonic polyp. Plan: Plan dated October 25, 2024. The patient is placed on appropriate medications, including Tamiflu 75 mg twice a day, Solu-Medrol 60 mg every 6 hours, updrafts with albuterol sulfate ipratropium bromide, 4 times daily and as needed, and Symbicort, 160/4.5, 2 puffs twice a day. Labs, x-rays, and all medications are reviewed. We will continue to follow the patient, make recommendations. The patient is currently on 2 L. 55 minutes was spent with this patient, including time spent obtaining the history, examining the patient, reviewing pertinent laboratory data, x-rays, medications, as well as discussing the diagnosis, treatment, and prognosis, with the patient, and the patient's nursing staff. In addition, the patient's was in the room, will be evaluated the patient. Plan dated October 26, 2024. The patient is seen again in room 352. She continues on nasal O2 at 2 L. She is not receiving any IV fluids. She is receiving appropriate medications including updrafts, Symbicort, and steroids. In addition, she is on Tamiflu. All labs, x-rays, medications are reviewed. We will continue to follow the patient, make recommendations along the way. 50 minutes was spent with the patient, including obtaining additional history, examining the patient, reviewing pertinent laboratory data, x-rays, medications, as well as discussing the diagnosis, treatment, prognosis, with the patient, and the patient's bedside nurse. We will continue to follow. Dictation was produced using [employer] dictation software. Please excuse any grammatical, word or spelling errors. Time with Patient: Greater than 30
[2024-10-27] MEDS: IPRATROPIUM-ALBUTEROL 3 ML NEB INHALATION SCH (08:10)
--- NOTE | 2024-10-27 13:13 | P.PN ---
Subjective Progress Note Date: 10/27/24 79-year-old female with hyperlipidemia, hypertension, osteoporosis, CAD, COPD here for shortness of breath. On 10/23 patient reported that she did not feel well and she was getting short of breath. She was noted to have a nonproductive cough, runny nose at that time. However, on 10/24 patient noted her shortness of breath did not improve despite using albuterol inhaler and nebulizer. She also reported to experience unilateral pulsating headache, palpitations and 1 episode of vomiting that was nonbloody. She denied fever, chills, lower extremity swelling, chest pain, abdominal pain, recent illness, or recent travel. 10/25/24 - Patient seen and examined at bedside. No acute events overnight. 10/26/24 - Patient seen and examined at bedside. No acute events overnight. Continues to have shortness of breath with ambulation 10/27/24 - Patient seen and examined at bedside this morning. No acute events overnight. States that her headache had returned today, otherwise endorses feeling about the same as she has been. REVIEW OF SYSTEMS: Pertinent positives and negatives noted in HPI. Physical Exam: General: nontoxic, no distress, appears at stated age Derm: warm, dry, intact Head: atraumatic, normocephalic, symmetric Eyes: EOMI, anicteric sclera Mouth: no lip lesion, mucus membranes moist Cardiovascular: S1 S2 reg, no murmur, rubs, or gallops Lungs: CTA bilateral, bilateral rhonchi, no rales, no accessory muscle use Abdominal: soft, non-tender to palpataion, no appreciable organomegaly Extremities: no gross muscle atrophy, no edema, no contractures Psych: well appearing, appropriate affect Data Received Today: Labs: No new today Imagining: No new today Assessment and plan 79-year-old female with hyperlipidemia, hypertension, osteoporosis, CAD, COPD here for shortness of breath. #Acute COPD exacerbation #Acute hypoxic respiratory failure #Influenza A infection -Pulmonology following -DuoNebs 4 times daily as needed, every 4 hours scheduled, Symbicort twice daily, Tamiflu 75 twice daily -Started prednisone 40 mg p.o. daily -Continue to wean oxygen as able #Hyperglycemia -A1c 5.6 #Uncontrolled hypertension -Continue chlorthalidone 25 daily, atenolol 50 daily Chronic: CAD Osteoporosis Dyslipidemia GI PPx: Protonix 40 mg p.o. daily DVT ppx: Lovenox 40 mg subcu daily Code status: Full code F: None E: Replete as needed N: Regular diet A: Ambulatory Anticipated discharge place: Pending clinical course Anticipated discharge time: Pending clinical course Dictation was produced using [employer] dictation software. please excuse any grammatical, word or spelling errors. I have seen and evaluated the patient today. Discussed with the resident and agree with the residents finding and plan as documented in the resident's note. Changes highlighted in blue font. Objective - Vital Signs Vital signs: Vital Signs Temp 98.3 F 10/26/24 21:05 Pulse 77 10/27/24 04:05 Resp 18 10/27/24 04:05 BP 117/68 10/27/24 04:05 Pulse Ox 96 10/27/24 04:05 FiO2 60 10/24/24 21:21 Intake & Output 10/26/24 10/27/24 10/27/24 18:59 06:59 18:59 Intake Total 1370 240 Balance 1370 240 Weight 41.5 kg Intake: Oral 1370 240 Other: Voiding Method Toilet Toilet # Voids 2 # Bowel Movements 0 2 - Labs CBC & Chem 7: 10/25/24 05:20 10/25/24 05:20
--- NOTE | 2024-10-27 19:26 | P.PN ---
Subjective Progress Note Date: 10/27/24 79-year-old female seen in the emergency department, on October 24, at about 11:00 PM. The patient has a history of COPD, and comes into the emergency room, complaining of increasing shortness of breath, chest congestion, cough, wheezing, and chest tightness. The patient took a breathing treatment at home, but did not feel any better, and then called 911, and she was brought into the emergency department, brought by EMS, and received a DuoNeb treatment, and cora. She was placed on 8 L of oxygen by nasal cannula. We see her today in room 352. Her complaints include shortness of breath, cough, wheezing, and chest tightness. 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 She was a smoker in the past. She has a history of COPD, angina, hyperlipidemia, hypertension, Guillain-Singh syndrome, osteoporosis, and colonic polyp. She does not take any breathing medications or oxygen. Current laboratory data includes a white count 9.5, hemoglobin 14.7, hematocrit 44.4, and a platelet count of 221,000. Coag studies are normal. Sodium 136, potassium 4, chloride 96, CO2 28, BUN 16, creatinine 0.64. Glucose 168. Calcium 9.7. She did test positive for influenza A. Chest x-ray showed findings consistent with COPD. Progress note dated October 26, 2024. 79-year-old female seen in room 352. The patient was admitted with a diagnosis of COPD exacerbation, likely triggered by influenza A. Currently, she is on 2 L. She is not receiving any IV fluids. She sitting in the bed, in no respi ratory distress. She does have some tightness in the chest, wheezing, and cough. The cough is mostly nonproductive. No new laboratory data today. On 10/27/2024, the patient is being seen for a follow-up. This is a 79-year-old female patient diagnosed having acute CF exacerbation triggered by an influenza A infection. The patient is feeling slightly improved compared to yesterday. She remains on oxygen 2 L/min nasal cannula. She is still requiring oxygen and for that reason, she was kept in the hospital. The patient does not have any home O2. Afebrile hemodynamically stable. No new labs are available from today. The patient remains on Tamiflu 30 mg p.o. twice a day. The patient r emains on DuoNeb nebulized treatments [id number] and Symbicort as maintenance. The patient is on Lovenox for DVT prophylaxis. She continues to have a congested cough. Able to bring a much sputum. Remains on Mucinex DM twice a day. The patient was also taken off the IV Solu-Medrol started on a prednisone burst taper. Awake and alert and communicating. Objective - Vital Signs Vital signs: Vital Signs Temp 98.0 F 10/27/24 08:40 Pulse 76 10/27/24 12:05 Resp 18 10/27/24 12:00 BP 139/66 10/27/24 12:00 Pulse Ox 94 L 10/27/24 12:00 FiO2 2 10/27/24 08:10 Intake & Output 10/26/24 10/27/24 10/27/24 18:59 06:59 18:59 Intake Total 1370 240 480 Balance 1370 240 480 Weight 41.5 kg Intake: Oral 1370 240 480 Other: Voiding Method Toilet Toilet Toilet # Voids 2 # Bowel Movements 0 2 0 - Exam No acute distress, oriented 3. The patient is in no respiratory distress. She is sitting up in bed. She is on 2 L. HEENT examination is grossly unremarkable. Mucous membranes are moist. No oral lesions. Neck supple. Full range of motion. No adenopathy thyromegaly or neck vein distention. Cardiovascular examination reveals regular rhythm rate. S1-S2 normal. No S3 or S4. No discernible murmur noted. Lungs reveal inspiratory and expiratory wheezes and rhonchi. No crackles. Breath sounds equal bilaterally. There is prolongation on forced maneuver. Abdomen soft bowel sounds are heard. No masses or tenderness. Extremities are intact. No cyanosis clubbing or edema. Skin is without rash or lesion. Neurologic examination is brief but nonfocal. - Labs CBC & Chem 7: 10/25/24 05:20 10/25/24 05:20 Assessment and Plan Plan: Acute exacerbation of COPD, likely triggered by influenza A infection. Acute influenza A infection/bronchitis, currently on Tamiflu Acute hypoxic respiratory failure currently on 2 L of oxygen nasal cannula Prior history of heavy tobacco use. History of angina pectoris. History of hyperlipidemia. History of hypertension. History of Guillain-Singh syndrome. History of osteoporosis. Benign colonic polyp. Plan: Titrate oxygen flow to maintain oxygen levels above 90%, currently on 2 L May need home O2 Continue Tamiflu, a total of 5-day course Discontinued IV Solu-Medrol start the patient on prednisone burst taper currently on 40 mg Continue Symbicort 2 puffs twice a day DuoNeb nebulized treatments 4 times a day Mucinex for cough and congestion Will continue to follow.
[2024-10-27] MEDS: OSELTAMIVIR 30 MG CAP PO SCH (19:57)
[2024-10-28] MEDS: PANTOPRAZOLE 40 MG TABLET PO SCH (06:22)
[2024-10-28] MEDS: predniSONE 20 MG TAB PO SCH (09:24)
--- NOTE | 2024-10-28 14:08 | P.DS ---
Providers Date of admission: 10/24/24 22:48 Expected date of discharge: 10/28/24 Attending physician: Etelvina Braone MD Consults: 10/24/24 22:46 Consult Physician Urgent Consulting Provider: Graeme Call Consult Reason/Comments: bipap resp failure, influenza a, copd exacerbation Do you want consulting provider notified?: Yes Primary care physician: Ruben Celis Hospital Course: Patient will be discharged tomorrow per pulmonology. This note will serve as today's progress note. Discharge diagnoses; #Acute COPD exacerbation #Acute hypoxic respiratory failure #Influenza A infection Hospital course; 79-year-old female with hyperlipidemia, hypertension, osteoporosis, CAD, COPD here for shortness of breath. On 10/23 patient reported that she did not feel well and she was getting short of breath. She was noted to have a nonproductive cough, runny nose at that time. However, on 10/24 patient noted her shortness of breath did not improve despite using albuterol inhaler and nebulizer. Upon arrival to the hospital, she has been followed by the corner bead operator. Per the recommendation, she is continued on Tamiflu as well as breathing treatments. She shown improvement each day, remaining afebrile and oxygen saturation > 90% while utilizing supplemental oxygen, 2-3 L. She is excited to be discharged. She is being sent home with 2 medications to be continued for 1 additional day following discharge. Physical Exam: General: nontoxic, no distress, appears at stated age Derm: warm, dry, intact Head: atraumatic, normocephalic, symmetric Eyes: EOMI, anicteric sclera Mouth: no lip lesion, mucus membranes moist Cardiovascular: S1 S2 reg, no murmur, rubs, or gallops Lungs: CTA bilateral, bilateral rhonchi, no rales, no accessory muscle use Abdominal: soft, non-tender to palpataion, no appreciable organomegaly Extremities: no gross muscle atrophy, no edema, no contractures Psych: well appearing, appropriate affect Dictation was produced using [employer] dictation software. please excuse any grammatical, word or spelling errors. I have seen and evaluated the patient today. Discussed with the resident and agree with the residents finding and plan as documented in the resident's note. Changes highlighted in blue font. Plan - Discharge Summary Discharge Rx Participant: Yes New Discharge Prescriptions: New predniSONE [Deltasone] 40 mg PO DAILY #2 tab Oseltamivir [Tamiflu] 30 mg PO BID #2 cap Continue Pravastatin Sodium [Pravachol] 20 mg PO DAILY Cholecalciferol (Vitamin D3) [Vitamin D3 (3000 Iu)] 75 mcg PO DAILY atenoloL [Tenormin] 50 mg PO DAILY Ibandronate Sodium [Boniva] 150 mg PO QMONTHLY Chlorthalidone [Hygroton] 25 mg PO DAILY Albuterol Inhaler [Ventolin Hfa Inhaler] 2 puff INHALATION RT-QID PRN PRN Reason: Shortness Of Breath Ipratropium-Albuterol Nebulize [Duoneb 0.5 mg-3 mg/3 ml Soln] 3 ml INHALATION RT-TID PRN PRN Reason: Shortness Of Breath Fluticasone Propion/Salmeterol [Wixela 250-50 Inhub] 1 puff INHALATION RT-BID ALPRAZolam [Xanax] 0.5 mg PO DAILY PRN PRN Reason: Anxiety Discharge Medication List Pravastatin Sodium [Pravachol] 20 mg PO DAILY 02/28/18 [History] Cholecalciferol (Vitamin D3) [Vitamin D3 (3000 Iu)] 75 mcg PO DAILY 12/02/21 [History] Ibandronate Sodium [Boniva] 150 mg PO QMONTHLY 12/02/21 [History] ALPRAZolam [Xanax] 0.5 mg PO DAILY PRN 10/25/24 [History] Albuterol Inhaler [Ventolin Hfa Inhaler] 2 puff INHALATION RT-QID PRN 10/25/24 [History] Chlorthalidone [Hygroton] 25 mg PO DAILY 10/25/24 [History] Fluticasone Propion/Salmeterol [Wixela 250-50 Inhub] 1 puff INHALATION RT-BID 10/25/24 [History] Ipratropium-Albuterol Nebulize [Duoneb 0.5 mg-3 mg/3 ml Soln] 3 ml INHALATION RT-TID PRN 10/25/24 [History] atenoloL [Tenormin] 50 mg PO DAILY 10/25/24 [History] Oseltamivir [Tamiflu] 30 mg PO BID #2 cap 02/18/25 [Rx] predniSONE [Deltasone] 40 mg PO DAILY #2 tab 10/28/24 [Rx] Follow up Appointment(s)/Referral(s): [facility] [NON-STAFF] - Ruben Celis DO [Primary Care Provider] - 1-2 days Patient Instructions/Handouts: Influenza (DC) Activity/Diet/Wound Care/Special Instructions: Please see PCP. Discharge Disposition: HOME SELF-CARE
[2024-10-28 16:02] VITALS: BMI 18.2
--- NOTE | 2024-10-28 18:21 | P.PN ---
Subjective Progress Note Date: 10/28/24 79-year-old female seen in the emergency department, on October 24, at about 11:00 PM. The patient has a history of COPD, and comes into the emergency room, complaining of increasing shortness of breath, chest congestion, cough, wheezing, and chest tightness. The patient took a breathing treatment at home, but did not feel any better, and then called 911, and she was brought into the emergency department, brought by EMS, and received a DuoNeb treatment, and cora. She was placed on 8 L of oxygen by nasal cannula. We see her today in room 352. Her complaints include shortness of breath, cough, wheezing, and chest tightness. 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 She was a smoker in the past. She has a history of COPD, angina, hyperlipidemia, hypertension, Guillain-Singh syndrome, osteoporosis, and colonic polyp. She does not take any breathing medications or oxygen. Current laboratory data includes a white count 9.5, hemoglobin 14.7, hematocrit 44.4, and a platelet count of 221,000. Coag studies are normal. Sodium 136, potassium 4, chloride 96, CO2 28, BUN 16, creatinine 0.64. Glucose 168. Calcium 9.7. She did test positive for influenza A. Chest x-ray showed findings consistent with COPD. Progress note dated October 26, 2024. 79-year-old female seen in room 352. The patient was admitted with a diagnosis of COPD exacerbation, likely triggered by influenza A. Currently, she is on 2 L. She is not receiving any IV fluids. She sitting in the bed, in no respi ratory distress. She does have some tightness in the chest, wheezing, and cough. The cough is mostly nonproductive. No new laboratory data today. On 10/27/2024, the patient is being seen for a follow-up. This is a 79-year-old female patient diagnosed having acute CF exacerbation triggered by an influenza A infection. The patient is feeling slightly improved compared to yesterday. She remains on oxygen 2 L/min nasal cannula. She is still requiring oxygen and for that reason, she was kept in the hospital. The patient does not have any home O2. Afebrile hemodynamically stable. No new labs are available from today. The patient remains on Tamiflu 30 mg p.o. twice a day. The patient r emains on DuoNeb nebulized treatments [id number] and Symbicort as maintenance. The patient is on Lovenox for DVT prophylaxis. She continues to have a congested cough. Able to bring a much sputum. Remains on Mucinex DM twice a day. The patient was also taken off the IV Solu-Medrol started on a prednisone burst taper. Awake and alert and communicating. On 10/28/2024, the patient remains oxygen dependent. She is still on oxygen 3 liters of oxygen by nasal cannula. Pulse ox in order 93%. Continues to have cough and congestion. Remains on Symbicort. Remains on DuoNeb updrafts. Cur rently on a prednisone burst taper starting with 40 mg p.o. daily and the patient remains on Tamiflu. Her cough and congestion is still present. Unable to bring up much of sputum Objective - Vital Signs Vital signs: Vital Signs Temp 98.6 F 10/28/24 11:45 Pulse 73 10/28/24 11:45 Resp 14 10/28/24 11:45 BP 121/64 10/28/24 11:45 Pulse Ox 88 L 10/28/24 12:05 FiO2 2 10/27/24 08:10 Intake & Output 10/27/24 10/28/24 10/28/24 18:59 06:59 18:59 Intake Total 630 100 Balance 630 100 Weight 42.3 kg Intake: Oral 630 100 Other: Voiding Method Toilet Toilet Toilet # Voids 0 # Bowel Movements 0 - Exam No acute distress, oriented 3. The patient is in no respiratory distress. She is sitting up in bed. She is on 3 L. HEENT examination is grossly unremarkable. Mucous membranes are moist. No oral lesions. Neck supple. Full range of motion. No adenopathy thyromegaly or neck vein distention. Cardiovascular examination reveals regular rhythm rate. S1-S2 normal. No S3 or S4. No discernible murmur noted. Lungs reveal inspiratory and expiratory wheezes and rhonchi. No crackles. Breath sounds equal bilaterally. There is prolongation on forced maneuver. Abdomen soft bowel sounds are heard. No masses or tenderness. Extremities are intact. No cyanosis clubbing or edema. Skin is without rash or lesion. Neurologic examination is brief but nonfocal. - Labs CBC & Chem 7: 10/25/24 05:20 10/25/24 05:20 Assessment and Plan Plan: Acute exacerbation of COPD, likely triggered by influenza A infection. Remains symptomatic and remains hypoxic on 2 L of oxygen by nasal cannula Acute influenza A infection/bronchitis, currently on Tamiflu Acute hypoxic respiratory failure currently on 3 L of oxygen nasal cannula Prior history of heavy tobacco use. History of angina pectoris. History of hyperlipidemia. History of hypertension. History of Guillain-Singh syndrome. History of osteoporosis. Benign colonic polyp. Plan: Titrate oxygen flow to maintain oxygen levels above 90%, currently on 3 L May need home O2 Continue Tamiflu, a total of 5-day course Continue prednisone burst taper currently on 40 mg Stop the Symbicort and put the patient on a combination of Perforomist and Pulmicort nebulized treatments twice a day Provide the patient flutter valve DuoNeb nebulized treatments 4 times a day Mucinex for cough and congestion Will continue to follow.
[2024-10-28] MEDS: BUDESONIDE 0.5 MG/2 ML NEBU INHALATION SCH (18:31)
[2024-10-28] MEDS: FORMOTEROL FUMARATE 20 MCG/2 ML NEBU INHALATION SCH (18:31)
[2024-10-29 11:25] VITALS: BP 100/64; RESP 14; TEMP 98.1
[2024-10-29 11:38] VITALS: PULSE 80
--- NOTE | 2024-10-29 14:17 | P.DS ---
Providers Date of admission: 10/24/24 22:48 Attending physician: Etelvina Barone MD Consults: 10/24/24 22:46 Consult Physician Urgent Consulting Provider: Graeme Call Reason/Comments: bipap resp failure, influenza a, copd exacerbation Do you want consulting provider notified?: Yes [facility] Course: Discharge diagnoses; #Acute COPD exacerbation #Acute hypoxic respiratory failure #Influenza A infection Hospital course; 79-year-old female with hyperlipidemia, hypertension, osteoporosis, CAD, COPD here for shortness of breath. On 10/23 patient reported that she did not feel well and she was getting short of breath. She was noted to have a nonproductive cough, runny nose at that time. However, on 10/24 patient noted her shortness of breath did not improve despite using albuterol inhaler and nebulizer. Upon arrival to the hospital, she has been followed by the wood floor refinisher. Per the recommendation, she is continued on Tamiflu as well as breathing treatments. She shown improvement each day, remaining afebrile and oxygen saturation > 90% while utilizing supplemental oxygen, 2-3 L. She is excited to be discharged. Physical Exam: General: nontoxic, no distress, appears at stated age Derm: warm, dry, intact Head: atraumatic, normocephalic, symmetric Eyes: EOMI, anicteric sclera Mouth: no lip lesion, mucus membranes moist Cardiovascular: S1 S2 reg, no murmur, rubs, or gallops Lungs: CTA bilateral, bilateral rhonchi, no rales, no accessory muscle use Abdominal: soft, non-tender to palpataion, no appreciable organomegaly Extremities: no gross muscle atrophy, no edema, no contractures Psych: well appearing, appropriate affect Dictation was produced using [employer] dictation software. please excuse any grammatical, word or spelling errors. I have seen and evaluated the patient today. Discussed with the resident and agree with the residents finding and plan as documented in the resident's note. Changes highlighted as below. Pulmonary cleared for discharge. Plans for home with oxygen. Prednisone taper, Tamiflu x 1 day, Perforomist and Pulmicort prescription sent to the pharmacy. Follow up with PCP within 1-[address] Hoover within 1 week of discharge. This complex discharge took 35 minutes to complete. Patient Condition at Discharge: Stable Plan - Discharge Summary Discharge Rx Participant: Yes New Discharge Prescriptions: New Oseltamivir [Tamiflu] 30 mg PO BID #2 cap Formoterol Fumarate [Perforomist] 20 mcg INHALATION RT-BID #60 ml Budesonide [Pulmicort] 0.5 mg INHALATION RT-BID #60 ml predniSONE See Taper PO DIRECTED #30 tab Continue Pravastatin Sodium [Pravachol] 20 mg PO DAILY Cholecalciferol (Vitamin D3) [Vitamin D3 (3000 Iu)] 75 mcg PO DAILY atenoloL [Tenormin] 50 mg PO DAILY Ibandronate Sodium [Boniva] 150 mg PO QMONTHLY Chlorthalidone [Hygroton] 25 mg PO DAILY Albuterol Inhaler [Ventolin Hfa Inhaler] 2 puff INHALATION RT-QID PRN PRN Reason: Shortness Of Breath Ipratropium-Albuterol Nebulize [Duoneb 0.5 mg-3 mg/3 ml Soln] 3 ml INHALATION RT-TID PRN PRN Reason: Shortness Of Breath Fluticasone Propion/Salmeterol [Wixela 250-50 Inhub] 1 puff INHALATION RT-BID ALPRAZolam [Xanax] 0.5 mg PO DAILY PRN PRN Reason: Anxiety Discharge Medication List Pravastatin Sodium [Pravachol] 20 mg PO DAILY 02/28/18 [History] Cholecalciferol (Vitamin D3) [Vitamin D3 (3000 Iu)] 75 mcg PO DAILY 12/02/21 [History] Ibandronate Sodium [Boniva] 150 mg PO QMONTHLY 12/02/21 [History] ALPRAZolam [Xanax] 0.5 mg PO DAILY PRN 10/25/24 [History] Albuterol Inhaler [Ventolin Hfa Inhaler] 2 puff INHALATION RT-QID PRN 10/25/24 [History] Chlorthalidone [Hygroton] 25 mg PO DAILY 10/25/24 [History] Fluticasone Propion/Salmeterol [Wixela 250-50 Inhub] 1 puff INHALATION RT-BID 10/25/24 [History] Ipratropium-Albuterol Nebulize [Duoneb 0.5 mg-3 mg/3 ml Soln] 3 ml INHALATION RT-TID PRN 10/25/24 [History] atenoloL [Tenormin] 50 mg PO DAILY 10/25/24 [History] Oseltamivir [Tamiflu] 30 mg PO BID #2 cap 10/28/24 [Rx] Budesonide [Pulmicort] 0.5 mg INHALATION RT-BID #60 ml 10/29/24 [Rx] Formoterol Fumarate [Perforomist] 20 mcg INHALATION RT-BID #60 ml 10/29/24 [Rx] predniSONE See Taper PO DIRECTED #30 tab 10/29/24 [Rx] Follow up Appointment(s)/Referral(s): [facility] [NON-STAFF] - Ruben Celis DO [Primary Care Provider] - 11/04/24 2:20 pm (Please call office to update your file prior to your appointment) Crissy Hoover MD [STAFF PHYSICIAN] - 1 Week (RN faxed face sheet to office and office staff will call patient with an appointment date and time) Patient Instructions/Handouts: Influenza (DC) Activity/Diet/Wound Care/Special Instructions: Please see PCP. Discharge Disposition: HOME SELF-CARE
--- NOTE | 2024-10-29 18:04 | P.PN ---
Subjective Progress Note Date: 10/29/24 79-year-old female seen in the emergency department, on October 24, at about 11:00 PM. The patient has a history of COPD, and comes into the emergency room, complaining of increasing shortness of breath, chest congestion, cough, wheezing, and chest tightness. The patient took a breathing treatment at home, but did not feel any better, and then called 911, and she was brought into the emergency department, brought by EMS, and received a DuoNeb treatment, and cora. She was placed on 8 L of oxygen by nasal cannula. We see her today in room 352. Her complaints include shortness of breath, cough, wheezing, and chest tightness. 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 She was a smoker in the past. She has a history of COPD, angina, hyperlipidemia, hypertension, Guillain-Singh syndrome, osteoporosis, and colonic polyp. She does not take any breathing medications or oxygen. Current laboratory data includes a white count 9.5, hemoglobin 14.7, hematocrit 44.4, and a platelet count of 221,000. Coag studies are normal. Sodium 136, potassium 4, chloride 96, CO2 28, BUN 16, creatinine 0.64. Glucose 168. Calcium 9.7. She did test positive for influenza A. Chest x-ray showed findings consistent with COPD. Progress note dated October 26, 2024. 79-year-old female seen in room 352. The patient was admitted with a diagnosis of COPD exacerbation, likely triggered by influenza A. Currently, she is on 2 L. She is not receiving any IV fluids. She sitting in the bed, in no respi ratory distress. She does have some tightness in the chest, wheezing, and cough. The cough is mostly nonproductive. No new laboratory data today. On 10/27/2024, the patient is being seen for a follow-up. This is a 79-year-old female patient diagnosed having acute CF exacerbation triggered by an influenza A infection. The patient is feeling slightly improved compared to yesterday. She remains on oxygen 2 L/min nasal cannula. She is still requiring oxygen and for that reason, she was kept in the hospital. The patient does not have any home O2. Afebrile hemodynamically stable. No new labs are available from today. The patient remains on Tamiflu 30 mg p.o. twice a day. The patient r emains on DuoNeb nebulized treatments [id number] and Symbicort as maintenance. The patient is on Lovenox for DVT prophylaxis. She continues to have a congested cough. Able to bring a much sputum. Remains on Mucinex DM twice a day. The patient was also taken off the IV Solu-Medrol started on a prednisone burst taper. Awake and alert and communicating. On 10/28/2024, the patient remains oxygen dependent. She is still on oxygen 3 liters of oxygen by nasal cannula. Pulse ox in order 93%. Continues to have cough and congestion. Remains on Symbicort. Remains on DuoNeb updrafts. Cur rently on a prednisone burst taper starting with 40 mg p.o. daily and the patient remains on Tamiflu. Her cough and congestion is still present. Unable to bring up much of sputum On today's evaluation of 10/29/2024, the patient remains oxygen dependent. She is currently on 2 L of O2 nasal cannula with pulse ox of 95%. Nevertheless, cough and congestion has subsided. She is using incentive spirometer and she was also given a flutter valve. No new complaints otherwise for now. No significant shortness of breath and the plan is to discharge the patient home on home O2. The white cell count 11.5 reamer 14.7 and platelet count of 221. BUN 16 with a creatinine of 0.6 and a sodium levels at 136. Blood sugars at 168. Those labs are from 10/25/2024. Objective - Vital Signs Vital signs: Vital Signs Temp 98.1 F 10/29/24 11:24 Pulse 80 10/29/24 11:49 Resp 14 10/29/24 11:24 BP 100/64 10/29/24 11:24 Pulse Ox 95 10/29/24 11:24 FiO2 2 10/27/24 08:10 Intake & Output 10/28/24 10/29/24 10/29/24 18:59 06:59 18:59 Intake Total 280 10 240 Balance 280 10 240 Weight 42.3 kg 41.8 kg Intake: IV 10 0.9 10 Oral 280 240 Other: Voiding Method Toilet Toilet Toilet # Voids 4 2 - Exam No acute distress, oriented 3. The patient is in no respiratory distress. She is sitting up in bed. She is on 3 L. HEENT examination is grossly unremarkable. Mucous membranes are moist. No oral lesions. Neck supple. Full range of motion. No adenopathy thyromegaly or neck vein distention. Cardiovascular examination reveals regular rhythm rate. S1-S2 normal. No S3 or S4. No discernible murmur noted. Lungs reveal inspiratory and expiratory wheezes and rhonchi. No crackles. Breath sounds equal bilaterally. There is prolongation on forced maneuver. Abdomen soft bowel sounds are heard. No masses or tenderness. Extremities are intact. No cyanosis clubbing or edema. Skin is without rash or lesion. Neurologic examination is brief but nonfocal. - Labs CBC & Chem 7: 10/25/24 05:20 10/25/24 05:20 Assessment and Plan Plan: Acute exacerbation of COPD, likely triggered by influenza A infection. Remains symptomatic and remains hypoxic on 3 L of oxygen by nasal cannula, clinically improving Acute influenza A infection/bronchitis, currently on Tamiflu, completing a 5-day course Acute hypoxic respiratory failure currently on 3 L of oxygen nasal cannula Prior history of heavy tobacco use. History of angina pectoris. History of hyperlipidemia. History of hypertension. History of Guillain-Singh syndrome. History of osteoporosis. Benign colonic polyp. Plan: Titrate oxygen flow to maintain oxygen levels above 90%, currently on 3 L, arrange home O2 The patient is to be discharged home on home O2 Continue Tamiflu, a total of 5-day course Continue prednisone burst taper currently on 40 mg at the time of discharge Flutter valve Incentive spirometeray Mucinex for cough and congestion Will continue to follow this patient on outpatient basis and the patient will be seen in the office in 2 weeks time.
== END 2024-10-29 15:05 | disposition home or self-care (01) | DRG 193 ==
LOC: EC 21:04 → 3SCARD 22:48
PROVIDERS: ADMIT Internal Medicine; ATTEND Internal Medicine
PROC: 5A09357 Assistance with Respiratory Ventilation, Less than 24 Consecutive Hours, Continuous Positive Airway Pressure (ICD-10-PCS; principal; 2024-10-24)
DX: J10.1 Influenza due to other identified influenza virus with other respiratory manifestations (principal); J96.01 Acute respiratory failure with hypoxia; G61.0 Guillain-Barre syndrome; J44.1 Chronic obstructive pulmonary disease with (acute) exacerbation; J44.0 Chronic obstructive pulmonary disease with (acute) lower respiratory infection; J91.8 Pleural effusion in other conditions classified elsewhere; I10 Essential (primary) hypertension; Z99.81 Dependence on supplemental oxygen; E78.5 Hyperlipidemia, unspecified; K63.5 Polyp of colon; M81.0 Age-related osteoporosis without current pathological fracture; R73.9 Hyperglycemia, unspecified; I25.10 Atherosclerotic heart disease of native coronary artery without angina pectoris; Z87.891 Personal history of nicotine dependence; Z79.899 Other long term (current) drug therapy
CPT/HCPCS: 36415; 71045; 80048; 80053; 83036; 83605; 83880; 84484; 85025; 85610; 85730; 87636; 93005; 94640; 94660; 94667; 94760; 96365; 96375; 99291

== ENCOUNTER → 2024-11-04 | Outpatient (CLI) | payer MEDICARE, OTHER ==
--- NOTE | 2024-11-04 15:35 | XR ---
EXAMINATION TYPE: XR chest 2V DATE OF EXAM: 11/04/2024 3:31 PM COMPARISON: None. CLINICAL INDICATION: Female, 79 years old with history of [id number] INFLUENZA A,SOB, TECHNIQUE: XR chest 2V view(s) obtained. FINDINGS: The heart size is normal. The pulmonary vasculature is normal. The lungs are clear. Hyperinflation and flattening of the diaphragms is compatible with COPD IMPRESSION: 1. No acute pulmonary process. 2. COPD [facility], , 11/04/2024 3:33 PM
== END | disposition home or self-care (01) ==
LOC: RADXRYALE 15:20
PROVIDERS: ATTEND Family Medicine
DX: J09.X1 Influenza due to identified novel influenza A virus with pneumonia (principal); J44.9 Chronic obstructive pulmonary disease, unspecified
CPT/HCPCS: 71046